=== PATIENT | female | born 1965 | race Caucasian/White ===

== ENCOUNTER 2022-07-02 10:30 | Outpatient (RCR) | payer BC, SELFPAY | END 2022-08-03 15:04 | disposition home or self-care (01) | PROVIDERS: Visit Provider Family Medicine | DX: M51.37 Other intervertebral disc degeneration, lumbosacral region (principal); M79.7 Fibromyalgia; Z51.89 Encounter for other specified aftercare | CPT/HCPCS: 97032; 97110; 97112; 97162 ==

== ENCOUNTER 2024-08-03 17:14 | Emergency (ER) | payer BC, SELFPAY ==
[2024-08-03 17:56] VITALS: BP 141/89; PULSE 80; RESP 18; TEMP 37; O2SAT 99; BMI 35.2
--- NOTE | 2024-08-03 19:37 | ED.NAVMDI ---
HPI - Nausea/Vomiting/Diarrhea General Chief complaint: Nausea/Vomiting Stated complaint: Med reaction--vomiting Time Seen by Provider: 08/03/24 19:31 History of Present Illness HPI Narrative: This patient comes in reporting nausea and vomiting symptoms. She thinks that it may be related to taking would go V for weight loss. She arrives here with normal vital signs. She states that she had not taken will go V for about 5 weeks as she was fighting an upper respiratory infection. She resumed at last evening with a previous dose that was increased from a starting dose. She reports 8 or 9 episodes of vomiting today. Related Data Home Medications ?Medication ?Instructions ?Recorded ?Confirmed albuterol sulfate 90 mcg/actuation 2 puff inhalation Q6H PRN wheezing 08/03/24 08/03/24 aerosol inhaler (Ventolin HFA) atorvastatin 10 mg tablet 10 mg PO QPM 08/03/24 08/03/24 bupropion HCl 150 mg 24 hr tablet, 150 mg PO DAILY 08/03/24 08/03/24 extended release bupropion HCl 300 mg 24 hr tablet, 300 mg PO DAILY 08/03/24 08/03/24 extended release buspirone 15 mg tablet 15 mg PO BID 08/03/24 08/03/24 buspirone 30 mg tablet 30 mg PO BID 08/03/24 08/03/24 cetirizine 10 mg tablet 10 mg PO DAILY 08/03/24 08/03/24 clonazepam 1 mg tablet 0.5 mg PO BID PRN anxiety 08/03/24 08/03/24 clonidine HCl 0.1 mg tablet 0.1 mg PO BID 08/03/24 08/03/24 cyanocobalamin (vitamin B-12) 1 IM 08/03/24 1,000 mcg/mL injection solution cyclobenzaprine 10 mg tablet 10 mg PO 3XD PRN muscle spasm 08/03/24 08/03/24 diclofenac sodium 1 % topical gel 4 g topical QID 08/03/24 08/03/24 duloxetine 60 mg capsule,delayed 60 mg PO BID 08/03/24 08/03/24 release eszopiclone 3 mg tablet 3 mg PO QPM 08/03/24 08/03/24 fluticasone propionate 50 2 spray intranasal DAILY 08/03/24 08/03/24 mcg/actuation nasal spray,suspension gabapentin 300 mg capsule 900 mg PO 3XD 08/03/24 08/03/24 methylphenidate HCl 20 mg tablet 20 mg PO BID 08/03/24 08/03/24 omeprazole 20 mg capsule,delayed 20 mg PO BID 08/03/24 08/03/24 release oxybutynin chloride 5 mg tablet 5 mg PO DAILY 08/03/24 08/03/24 semaglutide (weight loss) 0.25 0.25 mg subcut 08/03/24 mg/0.5 mL subcutaneous pen injector (Wegovy) trazodone 150 mg tablet 150 mg PO QPM 08/03/24 08/03/24 Allergies Allergy/AdvReac Type Severity Reaction Status Date / Time No Known Drug Allergies Allergy Verified 08/03/24 18:03 Review of Systems Status of ROS: Reports: 10 or more systems reviewed and unremarkable except as noted in History and below Narrative: Constitutional: No fevers, no weight gain or loss. Eyes: No discharge. No vision changes. HENT: No congestion, no sore throat, no ear pain. Cardiovascular: No chest pain, no palpitations. Respiratory: No shortness of breath, no wheezes, no cough. Gastrointestinal: No abdominal pain, no diarrhea. She reports some vomiting symptoms. Genitourinary: No dysuria, no hematuria. Musculoskeletal: Normal range of motion. Skin: No rashes, no pruritis. Neurological: No dizziness, weakness, sensory change, speech change. Endo/Heme/Allergies: No bruising or bleeding. No polydipsia. Pysch: no suicidality, no anxiety, no insomnia. All other systems reviewed and are negative. Exam Narrative: Exam Narrative: Constitutional: Well-developed, well-nourished, no acute distress. HEENT: Normocephalic, atraumatic. Neck: Normal range of motion. Nontender. Supple. Heart: Regular. No murmurs. Normal rate. Intact distal pulses. Lungs: Clear to auscultation. No chest discomfort. No wheezes, rhonchi, or rales. Abdomen: Normal bowel sounds. Nontender. No rebound tenderness. Genitalia: Deferred. Back: No midline tenderness. Normal range of motion. Extremities: Normal range of motion. No injury. Skin: Intact. No rash. Warm. No erythema or pallor. Neurologic: No altered sensation. No weakness. Alert and oriented. Psychiatric: No suicidality. No anxiety or depression. No insomnia. Nursing notes and vitals signs are reviewed. Const: Vital Signs, click to edit/add: Vital Signs - 24 hr 08/03/24 17:56 Temperature 98.6 F Pulse Rate [Right Pulse Oximeter] 80 Respiratory Rate 18 Blood Pressure [Ri ght Upper Arm] 141/89 H Pulse Oximetry 99 Oxygen Delivery Me thod Room Air Course Vital Signs Vital signs: Initial Vital Signs Temperature 98.6 F 08/03/24 17:56 Temperature Source Temporal Artery Scan 08/03/24 17:56 Pulse Rate 80 08/03/24 17:56 Pulse Rhythm Regular 08/03/24 17:56 Pulse Strength 3+ Normal 08/03/24 17:56 Respiratory Rate 18 08/03/24 17:56 Blood Pressure 141/89 H 08/03/24 17:56 Blood Pressure Mean 106 H 08/03/24 17:56 Blood Pressure Position Sitting 08/03/24 17:56 Pulse Oximetry 99 08/03/24 17:56 Oxygen Delivery Method Room Air 08/03/24 17:56 Vital Signs Temperature 98.6 F 08/03/24 17:56 Pulse Rate 80 08/03/24 17:56 Respiratory Rate 18 08/03/24 17:56 Blood Pressure 141/89 H 08/03/24 17:56 Pulse Oximetry 99 08/03/24 17:56 Oxygen Delivery Method Room Air 08/03/24 17:56 Temperature 98.6 F 08/03/24 17:56 Pulse Rate 80 08/03/24 17:56 Respiratory Rate 18 08/03/24 17:56 Blood Pressure 141/89 H 08/03/24 17:56 Pulse Oximetry 99 08/03/24 17:56 Oxygen Delivery Method Room Air 08/03/24 17:56 Medications Administered Medications: Discontinued Medications Generic Name Dose Route Start Last Admin Trade Name Freq PRN Reason Stop Dose Admin Ondansetron HCl 4 mg 08/03/24 20:09 08/03/24 20:13 Ondansetron Odt 4 Mg Tab PO 08/03/24 20:10 4 mg ONCE ONE Administration MDM - Nausea/Vomiting/Diarrhea MDM Narrative Medical decision making narrative: This patient arrives reporting vomiting symptoms that likely is related to resuming would go V therapy at an increased dose after being off of it for about 5 weeks. She arrives here with normal vital signs. I did discuss options for going forward and she agreed to take an oral dose of Zofran. She was able to take liquids without vomiting after this medicine helped her out. She did receive a prescription for Zofran from the [facility]. Discharge Plan Discharge Clinical Impression: Vomiting Patient Disposition: Home, Self-Care Condition: Improved Additional Instructions: Take medication as needed and directed. Resume will go V if desired next time at it starting dose. Follow up with MD or return if worsening. Prescriptions: No Action cyclobenzaprine 10 mg tablet 10 mg PO 3XD PRN (Reason: muscle spasm) clonidine HCl 0.1 mg tablet 0.1 mg PO BID cetirizine 10 mg tablet 10 mg PO DAILY atorvastatin 10 mg tablet 10 mg PO QPM methylphenidate HCl 20 mg tablet 20 mg PO BID clonazepam 1 mg tablet 0.5 mg PO BID PRN (Reason: anxiety) cyanocobalamin (vitamin B-12) 1,000 mcg/mL solution 1 IM trazodone 150 mg tablet 150 mg PO QPM buspirone 30 mg tablet 30 mg PO BID gabapentin 300 mg capsule 900 mg PO 3XD omeprazole 20 mg capsule,delayed release(DR/EC) 20 mg PO BID albuterol sulfate [Ventolin HFA] 90 mcg/actuation HFA aerosol inhaler 2 puff INHALATION Q6H PRN (Reason: wheezing) oxybutynin chloride 5 mg tablet 5 mg PO DAILY fluticasone propionate 50 mcg/actuation spray,suspension 2 spray INTRANASAL DAILY buspirone 15 mg tablet 15 mg PO BID bupropion HCl 300 mg tablet extended release 24 hr 300 mg PO DAILY bupropion HCl 150 mg tablet extended release 24 hr 150 mg PO DAILY duloxetine 60 mg capsule,delayed release(DR/EC) 60 mg PO BID eszopiclone 3 mg tablet 3 mg PO QPM diclofenac sodium 1 % gel 4 g topical QID Wegovy 0.25 mg/0.5 mL pen injector 0.25 mg subcut Follow Up/Referrals: Provider,Not a Local [Non-Staff] - Stand Alone Forms: [facility] Info Instructions
[2024-08-03] MEDS: ONDANSETRON ODT 4 MG TAB PO (20:13)
== END 2024-08-03 21:12 | disposition home or self-care (01) ==
PROVIDERS: Emergency Provider Emergency Medicine Emergency Medical Services; PCP Family Medicine
DX: R11.0 Nausea (principal)
CPT/HCPCS: 99283; 99284; A9270

== ENCOUNTER 2025-01-18 10:33 | Emergency (ER) | payer BC, SELFPAY ==
--- OUTSIDE RECORDS SUMMARY | 2020-06-05 04:41 | XMS_ITS | Continuity of Care Document ---
Author Organization [facility] Address [address] [facility] [address] [place] [address] Phone Care Team Providers Care Supervisor Statement Clerks Name Role Phone Tete Lee PA-C Unavailable Unavailable Advance Directives Directive Yes / No Effective Date File Name No Information Encounters Encounter Description Practice Location Reason(s) For Visit Diagnoses Date Provider Providers Copied on Encounter [facility], [address], [place], [place], [id number], [place] tel:[phone] Home Visit No Information Jesus Epstein. [address], [place], [place], [id number], [place]. tel:[phone] Family History Family Member Type Diagnosis Age At Onset No Information Payers Payer name Insurance type Covered alliance party ID Authoriza tion(s) No Information Social History Type Description Quantity Date Captured Comments Alcohol Use Details Unknown Caffeine Use Details Unknown Tobacco Use Status No Information Smoking Status No Information Sex Female Chief Complaint And Reason For Visit No Information Reason For Referral Reason For Referral No Information History Of Present Illness Encounter Date Complaint History Of Prese nt Illness No Information Functional Status Date Functional Assessmen t No Information Instructions Date Instruction Additional Infor mation No Information Assessments Type Assessment Date No Information Patient Care Teams Name Effective Dates (start - stop) Status Members No Information
--- OUTSIDE RECORDS SUMMARY | 2025-01-10 15:00 | XMS_ITS | Encounter Summary ---
Author Organization [facility] Address [address] [place] [address] Care Team Providers Care Pickling Solution Maker Name Role Phone Katelynn Carpenter M.D. Primary Care Provider Reason for Referral * Physical Therapy (Routine) - Authorized Specialty Diagnoses / Procedures Referred By Silvana farrar Referred To Contact Diagnoses Pain Low Back Chronic Katelynn Carpenter M.D. [address] [place] [address] Phone: tel: fax: [facility] [address] [place] [phone] Phone: tel: Referral ID Status Reason Start Date Expiration Date Visits Requested Visits Authorized [id number] Authorized Patient Preference 01/10/2025 07/12/2026 1 1 * Outpatient (Routine) - Authorized Specialty Diagnoses / Procedures Referred By Silvana farrar Referred To Contact Diagnoses Pain Low Back Chronic Katelynn Carpenter M.D. [address] [place] [address] Phone: tel: fax: Referral ID Status Reason Start Date Expiration Date Visits Requested Visits Authorized [id number] Authorized Patient Preference 01/10/2025 07/12/2026 1 1 Reason for Visit * Reason Comments Pain Management Mental Health Problem Encounter Details Date Type Department Care Team (Late st Contact Info) Description 01/10/2025 3:00 PM CDT Office Visit Department of Family Medicine, [facility], in [place], [place] [address] [phone] Katelynn Carpenter M.D. [address], [place] [address] Pain Low Back Chronic (Primary Dx); Smoking Tobacco Use Personal History; Depression Major Recurrent Moderate (HCC); Morbid Obesity Body Mass Index 40.0-44.9 Adult (HCC); Urgency Urinary; Screening Cancer Colon Social History Tobacco Use Types Packs/Day Years Used Date Smoking Tobacco: Every Day Cigarettes 0.8 42.9 Started: 02/18/1982 Passive Smoke Exposure: Never Smokeless Tobacco: Never Tobacco Cessation:Ready to Q uit: Not Asked; Counseling Given: Yes Comments:It seems to help in stressful situations or just to relax. I intend to quit in 6-12 months, or try. Alcohol Use Standard Drinks/Week Comments Yes 0 (1 standard drink = 0.6 oz pure alcohol) [facility] Right Hemisphereities Answer Date Recorded In the past 12 months has [facility] [employer], oil, or water [employer] threatened to shut off services in your home? Yes 11/04/2023 Humiliation, Afraid, Rape, and Kick questionnair e Answer Date Recorded Within the last year, have y ou been afraid of your partner or ex-partner? No 05/26/2022 Within the last year, have y ou been humiliated or emotionally abused in other ways by your partner or ex-partner? No Within the last year, have y ou been kicked, hit, slapped, or otherwise physically hurt by your partner or ex-partner? No 05/26/2022 Within the last year, have y ou been raped or forced to have any kind of sexual activity by your partner or ex-partner? No 05/26/2022 Hunger Vital Sign Answer Date Recorded Within the past 12 months, y ou worried that your food would run out before you got the money to buy more. Often true Within the past 12 months, t he food you bought just didn't last and you didn't have money to get more. Sometimes true PRAPARE - Transportation Answer Date Re corded In the past 12 months, has l ack of transportation kept you from medical appointments or from getting medications? Yes 10/16 In the past 12 months, has l ack of transportation kept you from meetings, work, or from getting things needed for daily living? Yes 11/04/2023 Depression Answer Date Recor ded PHQ-9 Total Score (max 27) 15 01/10 Housing Stability Answer Date Recorded What is your living situation today? I h ave a place to live today, but I am worried about losing it in the future 11/04/2023 Education Answer Date Recorded What is the highest level of school you have completed or the highest degree you have received? Associate degree: occupational, technical, or vocational program 11/21/2018 Comments No Sex and Gender Information Value Date Recorded Sex Assigned at Female 06/20/2021 12:21 PM CORNETIST Legal Sex Female 2:12 PM CORNETIST Gender Identity Female 04/22/2017 9:22 AM CORNETIST Sexual Orientation Straight 04/22/2017 9: 22 AM CORNETIST Occupation Industry Job Start Date Job End Date Homemaker Not on file Not on file Not on file documented as of this encounter Last Filed Vital Signs Vital Sign Reading Time Taken Comments Blood Pressure 104/68 01/10/2025 3:12 PM CDT Pulse 80 01/10/2025 3:12 PM CDT Temperature - - Respiratory Rate - - Oxygen Saturation - - Inhaled Oxygen Concentration - - Weight 93.5 kg (206 lb 2.1 oz) 01/10/2025 3:12 P M CDT Height 155.5 cm (5' 1.22) 01/10/2025 3:12 PM CD T Body Mass Index 38.67 01/10/2025 3:12 PM CDT documented in this encounter Progress Notes * Katelynn Carpenter M.D. - 01/10/2025 3:00 PM CDT SUBJECTIVE CHIEF COMPLAINT / REASON FOR VISIT Marion Rodriguez is a 59 y.o. female who presents for evaluation of Pain Management and Mental Health Problem. HISTORY OF PRESENT ILLNESS Marion Rodriguez states that she has back pain that is sharp and shooting pain down her right leg. She states that the pain is always there. She has been taking 4 325mg tablets 4 times a day. She states that sometimes she gets upper pain that also comes with it. The following portions of the patient's history were reviewed and updated as appropriate: allergies, current medications, family history, medical history, social history, surgical history, and problem list. REVIEW OF SYSTEMS Musculoskeletal: Positive for back pain. Neurological: Positive for numbness or shooting pain in hands, arms, legs, or feet. Psychiatric/Behavioral: Positive for feeling nervous, anxious, or on edge in past two weeks. current medications[1] OBJECTIVE PHYSICAL EXAM Blood pressure 104/68, pulse 80, height 155.5 cm, weight 93.5 kg, last menstrual period 10/30/2018,not currently . Constitutional Appearance: She is obese. HENT Head: Normocephalic and atraumatic. Right Ear: Tympanic membrane, ear canal and external ear normal. Left Ear: Tympanic membrane, ear canal and external ear normal. Nose: Nose normal. Mouth/Throat: Mouth: Mucous membranes are moist. Eyes Conjunctiva/sclera: Conjunctivae normal. Cardiovascular Rate and Rhythm: Normal rate and regular rhythm. Pulses: Normal pulses. Heart sounds: Normal heart sounds. No murmur heard. Pulmonary Effort: Pulmonary effort is normal. Breath sounds: Normal breath sounds. No wheezing or rales. Abdominal General: Abdomen is flat. Bowel sounds are normal. Palpations: Abdomen is soft. Tenderness: There is no abdominal tenderness. There is no right CVA tenderness or left CVA tenderness. Musculoskeletal General: Normal range of motion. Cervical back: Normal range of motion and neck supple. Right lower leg: No edema. Left lower leg: No edema. Skin General: Skin is warm. Neurological General: No focal deficit present. Mental Status: She is alert. Mental status is at baseline. Gait: Gait normal. Psychiatric Mood and Affect: Mood normal. Behavior: Behavior normal. ASSESSMENT / PLAN #1 Pain Low Back Chronic - External referral physician (non-[facility]) - methylPREDNISolone (MedroL DosePak) 4 mg tablet; Take as directed on package., Normal - External referral PT ([facility]) - Discussed with patient that she is taking over the recommended amount of aspirin and that she should take no more than 4000 mg in a day. Also discussed with patient that she is already on to controlled substances , benzos and amphetamines and that adding an additional controlled substance would increase her risk sedation and possible overdose of medication. Discussed with patient a referral to pain medicine to discuss possible injection and we will do a trial dose of steroids to see if it will help decrease her pain. - Patient declined discontinuing her Cymbalta and trying Savella. #2 Smoking Tobacco Use Personal History - nicotine (Nicoderm CQ) 7 mg/24 hr patch; Place 1 patch on the skin daily. Apply 21 mg patch dailyfor 4-6 weeks, then taper by 7-14 mg steps every 2-6 weeks until off. Pharmacy - Place on file, Starting Wed01/10/2025, Normal - nicotine (Nicoderm CQ) 14 mg/24 hr patch; Place 1 patch on the skin daily. Apply 21 mg patch daily for 4-6 weeks, then taper by 7-14 mg steps every 2-6 weeks until off. Pharmacy - Place on file, Starting Wed01/10/2025, Normal - nicotine (Nicoderm CQ) 21 mg/24 hr patch; Place 1 patch on the skin daily. Apply 21 mg patch daily for 4-6 weeks, then taper by 7-14 mg steps every 2-6 weeks until off., Starting Wed01/10/2025, Normal #3 Depression Major Recurrent Moderate (HCC) Assessment & Plan: Followed by psychiatry #4 Morbid Obesity Body Mass Index 40.0-44.9 Adult (HCC) Assessment & Plan: Taking 0.25mg of Wegovy #5 Urgency Urinary - oxyBUTYnin (Ditropan) 5 mg tablet; Take 1 tablet (5 mg total) by mouth daily., Starting Wed01/10/2025, Normal #6 Screening Cancer Colon - Cologuard - Sent Out Lab; Future; Expected date: 01/11/2025 Katelynn Carpenter M.D. [1] Current Outpatient Medications Medication Sig atorvastatin (Lipitor) 10 mg tablet TAKE ONE TABLET BY MOUTH ONE TIME DAILY AT BEDTIME FOR CHOLESTEROL buPROPion XL (Wellbutrin XL) 150 mg 24 hr tablet TAKE ONE TABLET BY MOUTH ONE TIME DAILY WITH 300 MG TAB FOR TOTAL OF 450 MG DAILY* buPROPion XL (Wellbutrin XL) 300 mg 24 hr tablet Take 1 tablet (300 mg total) by mouth daily. busPIRone (BuSpar) 30 mg tablet Take 1 tablet by mouth 2 (two) times a day. cetirizine (ZyrTEC) 10 mg tablet TAKE ONE TABLET BY MOUTH ONE TIME DAILY mckoxsrqs-wpmkbbxiq-htcvrwgpu (Advil Allergy Sinus) 2-30-200 mg tablet clonazePAM (KlonoPIN) 1 mg tablet Take 1 tablet (1 mg total) by mouth daily as needed for anxiety. cloNIDine (Catapres) 0.1 mg tablet TAKE ONE TABLET BY MOUTH TWICE DAILY cyanocobalamin (VITAMIN B12) 1,000 mcg/mL injection Inject 1 mL (1,000 mcg total) intramuscularly every 30 (thirty) days. cyclobenzaprine (FlexeriL) 10 mg tablet TAKE ONE TABLET BY MOUTH THREE TIMES DAILY NEEDED FOR MUSCLE SPASM diclofenac sodium (Voltaren) 1 % gel APPLY 4 GRAMS TOPICALLY 4 TIMES A DAY. APPLY TO LOW BACK &RIGHT LEG DULoxetine (Cymbalta) [address] capsule Take 1 capsule (60 mg total) by mouth 2 (two) times a day. eszopiclone (Lunesta) 3 mg tablet take one tablet by mouth one time daily at bedtime ferrous sulfate 325 mg (65 mg iron) DR tablet Take 1 tablet by mouth daily. fluticasone propionate (Flonase) 50 mcg/actuation nasal spray Inhale 2 Sprays to both nostrils oncedaily. gabapentin (Neurontin) 300 mg capsule TAKE THREE CAPSULES BY MOUTH THREE TIMES DAILY glucosamine-chondroitin (Osteo Bi-Flex) 250-200 mg tablet Take 1 tablet by mouth daily. hydrOXYzine (Atarax) 25 mg tablet Take 25 mg by mouth every 8 (eight) hours as needed. methylphenidate HCl (Ritalin) 20 mg tablet Take 1 tablet (20 mg total) by mouth 2 (two) times a daywith meals. (Patient taking differently: Take 20 mg by mouth 3 (three) times a day.) methylphenidate HCl (Ritalin) 20 mg tablet Take 20 mg by mouth. mv, min #36-iron,carbonyl-FA 16 mg iron- 0.38 mg tablet Take 1 tablet by mouth daily. omeprazole (PriLOSEC) [address] capsule TAKE ONE CAPSULE BY MOUTH TWICE DAILY 1 hour prior to meals or 2 hours after meals oxyBUTYnin (Ditropan) 5 mg tablet take one tablet by mouth one time daily prazosin (Minipress) 1 mg capsule Take 1 Capsule (1 mg) by mouth up to three times daily as needed for anxiety. [START ON 01/31/2025] semaglutide (Wegovy) 0.5 mg/0.5 mL pen injector injection Inject 0.5 mg under the skin every 7 (seven) days for 30 days. simethicone 125 mg tablet Take 125 mg by mouth as needed. Gas X syringe with needle (BD Luer-Ginger Syringe) 3 mL 25 gauge x 1 syringe ONCE, TO USE FOR B12 INJECTIONS traZODone (DESYREL) 150 mg tablet take one tablet by mouth at bedtime Ventolin HFA 90 mcg/actuation inhaler INHALE TWO PUFFS BY MOUTH EVERY SIX HOURS NEEDED FOR WHEEZING ascorbic acid, vitamin C, (VITAMIN C) 1,000 mg tablet (Patient not taking: Reported on 01/10/2025) aspirin 81 mg chewable tablet Chew 1 tablet daily. benzonatate (Tessalon) 200 mg capsule TAKE ONE CAPSULE BY MOUTH THREE TIMES DAILY NEEDED FOR COUGH ergocalciferol, vitamin D2, (VITAMIN D2 ORAL) (Patient not taking: Reported on 01/10/2025) HYDROcodone-acetaminophen (NORCO) 5-325 mg per tablet Take 1 tablet by mouth every 4 (four) hours as needed. HYDROcodone-acetaminophen (NORCO) 7.5-325 mg per tablet Take 1 tablet by mouth every 6 (six) hours as needed for pain Indication: Chronic Pain/Nonacute Pain. multivit with min-folic acid (Multivitamin Gummies) 200 mcg tablet,chewable traMADoL (Ultram) 50 mg tablet Take 50 mg by mouth every 6 (six) hours as needed. Wegovy 0.25 mg/0.5 mL pen injector injection Inject 0.25 mg under the skin every 7 days. (Patient not taking: Reported on 01/10/2025) Wegovy 2.4 mg/0.75 mL pen injector injection Inject 2.4 mg under the skin once weekly. (Patient nottaking: Reported on 01/10/2025) documented in this encounter Miscellaneous Notes * Assessment & Plan Note - Katelynn Carpneter M.D. - 01/10/2025 5:26 PM CDT Associated Problem(s): Depression Major Recurrent Moderate (HCC) Follow ed by psychiatry * Assessment & Plan Note - Katelynn Carpenter M.D. - 01/10/2025 5:26 PM CDT Associated Problem(s): Morbid Obesity Body Mass Index 40.0-44.9 Adult (HCC) Taking 0.25mg of Wegovy documented in this encounter Plan of Treatment Upcoming Encounters Date Type Department Care Team (Late st Contact Info) Description 01/26/2025 1:45 PM CDT Office Visit Department of Orthopedic Surgery in [place], [place] [address] [place] [phone] Akash Mendez M.D. [address] [place] [phone] 01/31/2025 4:00 PM CDT Appointment Department of Radiology in [place] [address] [facility] [place] [address] Katelynn Carpenter M.D. [address] [place] [phone] 03/06/2025 1:40 PM CDT Comprehensive Visit Department of Family Medicine, [facility], in [place], [place] [address] [place] [phone] Katelynn Carpenter M.D. [address], [place] [phone] Scheduled Orders Name Type Priority Associated Diagnoses Orde r Schedule Cologuard - Sent Out Lab Lab Routine Screening Cancer Colon Expected: 01/11/2025 (Approximate), Expires: 04/12/2026 documented as of this encounter Visit Diagnoses Diagnosis Pain Low Back Chronic- Primary Smoking Tobacco Use Personal History Depression Major Recurrent Moderate (HCC) Morbid Obesity Body Mass Index 40.0-44.9 Adult (HCC) Urgency Urinary Screening Cancer Colon documented in this encounter Additional Health Concerns Assessment Noted Time PHQ-9 Depression Total Score: 15 025 8:08 AM CDT documented as of this encounter Care Teams Pickling Solution Maker Relationship Specialty Start Date End Date Katelynn Carpenter M.D. [address] [place] [phone] PCP - General 10/29/23 documented as of this encounter
[2025-01-18 10:51] VITALS: BP 107/70; PULSE 84; RESP 18; TEMP 36.6; O2SAT 98; BMI 40.8
--- NOTE | 2025-01-18 11:10 | XR_ITS ---
Patient: ELIJAH SANDERS Facility:?[facility] Patient ID:?[id number] Site Patient ID:?[id number]. Site :?[id number] Study:?XRay-Extremity Right WRIST 3 VIEWS-01/18/2025 11:25:00 AM Ordering Physician:Stephanie Vicente Final Report: Indication: Fall, pain Technique: Right wrist 3 views. Comparison: None. Findings: No acute fracture or dislocation. Minimal ulnar negative variance. No substantial degenerative changes. The bones appear demineralized. Soft tissues are unremarkable. Impression: : No acute osseous abnormality. Dictated by Adina Rey MD @ 01/18/2025 11:36:17 AM Signed by:?Adina Rey MD @01/18/2025 11:36:17 AM (Electronic Signature)
--- NOTE | 2025-01-18 11:11 | ED.GENADULT ---
HPI - General Adult General Chief complaint: Extremity Pain/Injury, Upper Stated complaint: R arm injury Time Seen by Provider: 01/18/25 11:07 Source: patient Mode of arrival: ambulatory Limitations: no limitations History of Present Illness HPI narrative: 59-year-old female coming in today complaining of right wrist pain. Patient states that she tripped over quadrant fell 3 days ago on an outstretched hand. She also bruised her knees with states that she has no difficulty walking. States that the pain her risk continues. She has been wearing a splint that she had at home. She has a hard time turning her hand over or grabbing things. Pain is located right in the center of the wrist. Related Data Home Medications ?Medication ?Instructions ?Recorded ?Confirmed albuterol sulfate 90 mcg/actuation 2 puff inhalation Q6H PRN wheezing 08/03/24 08/03/24 aerosol inhaler (Ventolin HFA) atorvastatin 10 mg tablet 10 mg PO QPM 08/03/24 08/03/24 bupropion HCl 150 mg 24 hr tablet, 150 mg PO DAILY 08/03/24 08/03/24 extended release bupropion HCl 300 mg 24 hr tablet, 300 mg PO DAILY 08/03/24 08/03/24 extended release buspirone 15 mg tablet 15 mg PO BID 08/03/24 08/03/24 buspirone 30 mg tablet 30 mg PO BID 08/03/24 08/03/24 cetirizine 10 mg tablet 10 mg PO DAILY 08/03/24 08/03/24 clonazepam 1 mg tablet 0.5 mg PO BID PRN anxiety 08/03/24 08/03/24 clonidine HCl 0.1 mg tablet 0.1 mg PO BID 08/03/24 08/03/24 cyanocobalamin (vitamin B-12) 1 IM 08/03/24 1,000 mcg/mL injection solution cyclobenzaprine 10 mg tablet 10 mg PO 3XD PRN muscle spasm 08/03/24 08/03/24 diclofenac sodium 1 % topical gel 4 g topical QID 08/03/24 08/03/24 duloxetine 60 mg capsule,delayed 60 mg PO BID 08/03/24 08/03/24 release eszopiclone 3 mg tablet 3 mg PO QPM 08/03/24 08/03/24 fluticasone propionate 50 2 spray intranasal DAILY 08/03/24 08/03/24 mcg/actuation nasal spray,suspension gabapentin 300 mg capsule 900 mg PO 3XD 08/03/24 08/03/24 methylphenidate HCl 20 mg tablet 20 mg PO BID 08/03/24 08/03/24 omeprazole 20 mg capsule,delayed 20 mg PO BID 08/03/24 08/03/24 release oxybutynin chloride 5 mg tablet 5 mg PO DAILY 08/03/24 08/03/24 semaglutide (weight loss) 0.25 0.25 mg subcut 08/03/24 mg/0.5 mL subcutaneous pen injector ([employer]) trazodone 150 mg tablet 150 mg PO QPM 08/03/24 08/03/24 Allergies Allergy/AdvReac Type Severity Reaction Status Date / Time erythromycin base AdvReac Intermediate vomitting Verified 01/18/25 10:57 Review of Systems Status of ROS: Reports: 6 or more systems reviewed and unremarkable except as noted in History and below Exam Narrative: Exam Narrative: Obese, well-developed patient in no acute distress. Alert and oriented. Answers questions appropriately. Mood and affect are appropriate. HEENT: Normocephalic atraumatic. Extraocular muscles are intact. Conjunctivae are moist without any icterus noted. Extremities: No obvious swelling noted of the right wrist. She has pain with supination. Hand business ethics professor is weak on that side secondary to pain. Normal radial pulse and capillary refill. No pain over the medial or lateral aspect of the wrist. Const: Vital Signs, click to edit/add: Vital Signs - 24 hr 01/18/25 10:51 Temperature 97.9 F Pulse Rate [Pulse Oximeter] 84 Respiratory Rate 18 Blood Pressure [Le ft Upper Arm] 107/70 Pulse Oximetry 98 Oxygen Delivery Me thod Room Air Course Course ED Course: X-ray of the wrist was obtained. X-ray was unremarkable. Discussed this with the patient patient is quite concerned that she is really in unbearable pain. We discussed symptomatic treatment for a few days versus doing a CT scan and patient wishes to proceed with a CT scan at this time as she thinks that the pain is ?too sharp for there not to be a broken bone. Proceeded with a CT of the wrist: No fractures however there is a slight prominent scapholunate interval -concerning for potential ligamentous injury. Patient placed in a cock-up splint and will follow up with Orthopedics. Vital Signs Vital signs: Initial Vital Signs Temperature 97.9 F 01/18/25 10:51 Temperature Source Temporal Artery Scan 01/18/25 10:51 Pulse Rate 84 01/18/25 10:51 Respiratory Rate 18 01/18/25 10:51 Blood Pressure 107/70 01/18/25 10:51 Blood Pressure Mean 82 01/18/25 10:51 Blood Pressure Position Sitting 01/18/25 10:51 Pulse Oximetry 98 01/18/25 10:51 Oxygen Delivery Method Room Air 01/18/25 10:51 Vital Signs Temperature 97.9 F 01/18/25 10:51 Pulse Rate 84 01/18/25 10:51 Respiratory Rate 18 01/18/25 10:51 Blood Pressure 107/70 01/18/25 10:51 Pulse Oximetry 98 01/18/25 10:51 Oxygen Delivery Method Room Air 01/18/25 10:51 Temperature 97.9 F 01/18/25 10:51 Pulse Rate 84 01/18/25 10:51 Respiratory Rate 18 01/18/25 10:51 Blood Pressure 107/70 01/18/25 10:51 Pulse Oximetry 98 01/18/25 10:51 Oxygen Delivery Method Room Air 01/18/25 10:51 Medical Decision Making MDM Narrative Medical decision making narrative: 59-year-old female with a wrist injury. Plan per above. Imaging Data X-ray wrist: Attestation: I have reviewed the pertinent imaging results. Radiologist's impression: Indication: Fall, pain Technique: Right wrist 3 views. Comparison: None. Findings: No acute fracture or dislocation. Minimal ulnar negative variance. No substantial degenerative changes. The bones appear demineralized. Soft tissues are unremarkable. Impression: : No acute osseous abnormality. CT wrist: Attestation: I have reviewed the pertinent imaging results. Radiologist's impression: TECHNIQUE: Noncontrast CT of the right wrist. COMPARISON: Radiographs from 01/18/2025. FINDINGS: No acute fracture. There is ulnar minus variance. Slightly prominent scapholunate interval. No significant joint space narrowing. No erosive change or chondrocalcinosis. IMPRESSION: 1. No acute fracture. 2. Ulnar minus variance. 3. Slightly prominent scapholunate interval. Discharge Plan Discharge Clinical Impression: Injury of wrist Patient Disposition: Home, Self-Care Condition: Stable Additional Instructions: Wear splint at all times. Follow up with Orthopedics for next steps in management. Prescriptions: No Action cyclobenzaprine 10 mg tablet 10 mg PO 3XD PRN (Reason: muscle spasm) clonidine HCl 0.1 mg tablet 0.1 mg PO BID cetirizine 10 mg tablet 10 mg PO DAILY atorvastatin 10 mg tablet 10 mg PO QPM methylphenidate HCl 20 mg tablet 20 mg PO BID clonazepam 1 mg tablet 0.5 mg PO BID PRN (Reason: anxiety) cyanocobalamin (vitamin B-12) 1,000 mcg/mL solution 1 IM trazodone 150 mg tablet 150 mg PO QPM buspirone 30 mg tablet 30 mg PO BID gabapentin 300 mg capsule 900 mg PO 3XD omeprazole 20 mg capsule,delayed release(DR/EC) 20 mg PO BID albuterol sulfate [Ventolin HFA] 90 mcg/actuation HFA aerosol inhaler 2 puff INHALATION Q6H PRN (Reason: wheezing) oxybutynin chloride 5 mg tablet 5 mg PO DAILY fluticasone propionate 50 mcg/actuation spray,suspension 2 spray INTRANASAL DAILY buspirone 15 mg tablet 15 mg PO BID bupropion HCl 300 mg tablet extended release 24 hr 300 mg PO DAILY bupropion HCl 150 mg tablet extended release 24 hr 150 mg PO DAILY duloxetine 60 mg capsule,delayed release(DR/EC) 60 mg PO BID eszopiclone 3 mg tablet 3 mg PO QPM diclofenac sodium 1 % gel 4 g topical QID Wegovy 0.25 mg/0.5 mL pen injector 0.25 mg subcut Follow Up/Referrals: William Wilkisn MD [Primary Care Provider, Family Practice] Stand Alone Forms: [employer] Info Instructions
--- OUTSIDE RECORDS SUMMARY | 2025-01-18 11:19 | XMS_ITS | Encounter Summary ---
Author Organization [facility] Address [address] [place] [address] Care Team Providers Care Dining Manager Name Role Phone Katelynn Carpenter M.D. Primary Care Provider Encounter Details Date Type Department Care Team (Late st Contact Info) Description 12/14/2024 Clinical Communication Department of Family Medicine, [facility], in [place], [place] [address] [phone] Katelynn Carpenter M.D. [address] [phone] Social History Tobacco Use Types Packs/Day Years Used Date Smoking Tobacco: Every Day Cigarettes 0.8 42.9 Started: 02/18/1982 Passive Smoke Exposure: Never Smokeless Tobacco: Never Comments:It seems to help in stressful situations or just to relax. I intend to quit in 6-12 months, or try. Alcohol Use Standard Drinks/Week Comments Yes 0 (1 standard drink = 0.6 oz pure alcohol) Glass of wine with dinner/ w ? [facility] Utilities Answer Date Recorded In the past 12 months has e electric, gas, oil, or water company threatened to shut off services in your [...] Sex Assigned at Female 06/20/2021 12:21 PM MANUFACTURING PLANT MANAGER Legal Sex Female 2:12 PM MANUFACTURING PLANT MANAGER Gender Identity Female 04/22/2017 9:22 AM MANUFACTURING PLANT MANAGER Sexual Orientation Straight 04/22/2017 9: 22 AM MANUFACTURING PLANT MANAGER Occupation Industry Job Start Date Job End Date Homemaker Not on file Not on file Not on file documented as of this encounter Plan of Treatment Upcoming Encounters Date Type Department Care Team (Late st Contact Info) Description 01/26/2025 1:45 PM CDT Office Visit Department of Orthopedic Surgery in [place], [place] [address] [phone] Aksah Mendez M.D. [address] [phone] 01/31/2025 4:00 PM CDT Appointment Department of Radiology in [place] [address] [place] [address] Katelynn Carpenter M.D. [address] [phone] 03/06/2025 1:40 PM CDT Comprehensive Visit Department of Family Medicine, [facility], in [place], [place] [address] [phone] Katelynn Carpenter M.D. [address] [phone] documented as of this encounter Visit Diagnoses Not on filedocumented in this encounter Additional Health Concerns Assessment Noted Time PHQ-9 Depression Total Score: 15 024 10:51 AM MANUFACTURING PLANT MANAGER documented as of this encounter Care Teams Dining Manager Relationship Specialty Start Date End Date Katelynn Carpenter M.D. [address] [phone] PCP - General 10/29/23 documented as of this encounter
--- OUTSIDE RECORDS SUMMARY | 2025-01-18 11:19 | XMS_ITS | Encounter Summary ---
Author Organization [facility] Address [address] [place] [address] Care Team Providers Care Clothing Sales Assistant Name Role Phone Katelynn Carpenter M.D. Primary Care Provider Reason for Visit * Reason Comments Med Refill Encounter Details Date Type Department Care Team (Late st Contact Info) Description 12/09/2024 Refill Department of Family Medicine, [facility], in [place], [place] [address] [place] [phone] Katelynn Carpenter M.D. [address] [place] [phone] Med Refill Social History Tobacco Use Types Packs/Day Years [...] alcohol) Glass of wine with dinner/ w hubby [facility] Utilities Answer Date Recorded In the past 12 months has [employer] electric, gas, oil, or water company threatened [...] Sex Assigned at Female 06/20/2021 12:21 PM GRADER OPERATOR Legal Sex Female 2:12 PM GRADER OPERATOR Gender Identity Female 04/22/2017 9:22 AM GRADER OPERATOR Sexual Orientation Straight 04/22/2017 9: 22 AM GRADER OPERATOR Occupation Industry Job Start Date Job End Date Homemaker Not on file Not on file Not on file documented as of this encounter Plan of Treatment Upcoming Encounters Date Type Department Care Team (Late st Contact Info) Description 01/26/2025 1:45 PM CDT Office Visit Department of Orthopedic Surgery in [place], [place] [address] [place] [address] Akash Mendez M.D. [address] [phone] 01/31/2025 4:00 PM CDT Appointment Department of Radiology in [place] [address] [place] [address] Katelynn Carpenter M.D. [address] [phone] 03/06/2025 1:40 PM CDT Comprehensive Visit Department of Family Medicine, [facility], in [place], [place] [address] [phone] Katelynn Carpenter M.D. [address] [phone] documented as of this encounter Visit Diagnoses Diagnosis Morbid Obesity Body Mass Index 40.0-44.9 Adult (HCC) documented in this encounter Additional Health Concerns Assessment Noted Time PHQ-9 Depression Total Score: 15 024 10:51 AM GRADER OPERATOR documented as of this encounter Care Teams Clothing Sales Assistant Relationship Specialty Start Date End Date Katelynn Carpenter M.D. [address] [phone] PCP - General 10/29/23 documented as of this encounter
--- OUTSIDE RECORDS SUMMARY | 2025-01-18 11:19 | XMS_ITS | Encounter Summary ---
Author Organization [facility] Address [address] [place] [address] Care Team Providers Care Hypoid Gear Generator Name Role Phone Katelynn Carpenter M.D. Primary Care Provider Reason for Referral * Outpatient (Routine) - Authorized Specialty Diagnoses / Procedures Referred By Contact Referred To Contact Physical Medicine and Rehabilitation Diagnoses Pain Low Back Chronic James Colby M.D. [address] [place] [address] Phone: tel: fax: [facility] Referral ID Status Reason Start Date Expiration Date V isits Requested Visits Authorized [id number] Authorized 11/16/2024 05/18/2026 1 1 Encounter Details Date Type Department Care Team (Late st Contact Info) Description 11/16/2024 Clinical Communication Department of Family Medicine, [facility], in [place], [place] [address] [place] [phone] Katelynn Carpenter M.D. [address] [place] [phone] Social History Tobacco Use Types Packs/Day Years [...] alcohol) [facility] with dinner/ [facility] Utilities Answer Date Recorded In the past [address] [facility] [employer], gas, oil, or water [employer] threatened to shut off services in your [...] ded PHQ-9 Total Score (max 27) 15 04/18 Housing Stability Answer Date Recorded What is [...] Sex Assigned at Female 06/20/2021 12:21 PM MID LEVEL DEVELOPER Legal Sex Female 2:12 PM MID LEVEL DEVELOPER Gender Identity Female 04/22/2017 9:22 AM MID LEVEL DEVELOPER Sexual Orientation Straight 04/22/2017 9: 22 AM MID LEVEL DEVELOPER Occupation Industry Job Start Date Job End Date Homemaker Not on file Not on file Not on file documented as of this encounter Plan of Treatment Upcoming Encounters Date Type Department Care Team (Late st Contact Info) Description 01/26/2025 1:45 PM CDT Office Visit Department of Orthopedic Surgery in [place], [place] [address] [phone] Akash Mendez M.D. [address] [phone] 01/31/2025 4:00 PM CDT Appointment Department of Radiology in [address] [phone] Katelynn Carpenter M.D. [address] [phone] 03/06/2025 1:40 PM CDT Comprehensive Visit Department of Family Medicine, [facility], in [place], [place] [address] [phone] Katelynn Carpenter M.D. [address] [phone] Scheduled Referrals Name Type Priority Associated Diagnoses Order Schedule Physical Medicine and Rehabilitation - General consult (clinic) Outpatient Referral Routine Pain Low Back Chronic Expected: 11/16/2024, Expires: 02/16/2026 documented as of this encounter Visit Diagnoses Diagnosis Pain Low Back Chronic- Primary documented in this encounter Additional Health Concerns Assessment Noted Time PHQ-9 Depression Total Score: 15 12/03/2 024 10:51 AM MID LEVEL DEVELOPER documented as of this encounter Care Teams Hypoid Gear Generator Relationship Specialty Start Date End Date Katelynn Carpenter M.D. [address] [place] [phone] PCP - General 10/29/23 documented as of this encounter
--- OUTSIDE RECORDS SUMMARY | 2025-01-18 11:19 | XMS_ITS | Encounter Summary ---
Author Organization [facility] [place] [facility] Address [address] [place] [address] Care Team Providers Care Segment Assembler Name Role Phone Katelynn Carpenter M.D. Primary Care Provider Reason for Visit * Reason Onset Date Comments Rx PA Approval 11/27/2024 Wegovy 0.25 mg/0 .5 ml soln Encounter Details Date Type Department Care Team (Latest Contact Info) Description 11/27/2024 Clinical Communication Pharmacy Prior Auth RO [id number] Mae Squires Rx PA Approval (Wegovy 0.25 mg/0.5 ml soln) Social History Tobacco Use Types Packs/Day Years [...] alcohol) [facility]/ [facility] Utilities Answer Date Recorded In the past 12 months has e [employer], gas, oil, or water [employer] threatened to shut off services in your [...] Sex Assigned at Female 06/20/2021 12:21 PM SALVAGE WORKER Legal Sex Female 2:12 PM SALVAGE WORKER Gender Identity Female 04/22/2017 9:22 AM SALVAGE WORKER Sexual Orientation Straight 04/22/2017 9: 22 AM SALVAGE WORKER Occupation Industry Job Start Date Job End Date Homemaker Not on file Not on file Not on file documented as of this encounter Miscellaneous Notes * Telephone Encounter - Rafal Squiresceasar Mccarthy - 11/27/2024 11:11 AM CDT Pharmaceutical prior authorization has been approved for Wegovy 0.25 mg/0.5 ml. If you have any follow-up questions, please send an [employer] message to P [facility] MK. documented in this encounter Plan of Treatment Upcoming Encounters Date Type Department Care Team (Late st Contact Info) Description 01/26/2025 1:45 PM CDT Office Visit Department of Orthopedic Surgery in [place], [place] [address] [phone] Akash Mendez M.D. [address] [phone] 01/31/2025 4:00 PM CDT Appointment Department of Radiology in [place] [address] [place] [phone] Katelynn Carpenter M.D. [address] [phone] 03/06/2025 1:40 PM CDT Comprehensive Visit Department of Family Medicine, [facility], in [place], [place] [address] [phone] Katelynn Carpenter M.D. [address] [phone] documented as of this encounter Visit Diagnoses Not on filedocumented in this encounter Additional Health Concerns Assessment Noted Time PHQ-9 Depression Total Score: 15 024 10:51 AM SALVAGE WORKER documented as of this encounter Care Teams Segment Assembler Relationship Specialty Start Date End Date Katelynn Carpenter M.D. [address] [phone] PCP - General 10/29/23 documented as of this encounter
--- OUTSIDE RECORDS SUMMARY | 2025-01-18 11:19 | XMS_ITS | Encounter Summary ---
Author Organization [facility] Address [address] [place] [address] Care Team Providers Care Line Assembler Aircraft Name Role Phone Katelynn Carpenter M.D. Primary Care Provider Reason for Visit * Reason Comments Med Refill Encounter Details Date Type Department Care Team (Late st Contact Info) Description 11/26/2024 Refill Department of Family Medicine, [facility], in [place], [place] [address] [phone] Saige Flynn, EYAL, C.N.P. [address] [place] [phone] Med Refill Social History Tobacco Use [...] Glass of wine with dinner/ w hubby [facility] Utilities Answer Date Recorded In the past 12 months has health system electric, gas, oil, or water company threatened [...] Sex Assigned at Female 06/20/2021 12:21 PM RAIL CAR REPAIRMAN Legal Sex Female 2:12 PM RAIL CAR REPAIRMAN Gender Identity Female 04/22/2017 9:22 AM RAIL CAR REPAIRMAN Sexual Orientation Straight 04/22/2017 9: 22 AM RAIL CAR REPAIRMAN Occupation Industry Job Start Date Job End Date Homemaker Not on file Not on file Not on file documented as of this encounter Plan of Treatment Upcoming Encounters Date Type Department Care Team (Late st Contact Info) Description 01/26/2025 1:45 PM CDT Office Visit Department of Orthopedic Surgery in [place], [place] [address] [place] [address] Akash Mendez M.D. [address] [phone] 01/31/2025 4:00 PM CDT Appointment Department of Radiology in [place], [place] [address] [place] [address] Katelynn Carpenter M.D. [address] [phone] 03/06/2025 1:40 PM CDT Comprehensive Visit Department of Family Medicine, [facility], in [place], [place] [address] [phone] Katelynn Carpenter M.D. [address] [phone] documented as of this encounter Visit Diagnoses Not on filedocumented in this encounter Additional Health Concerns Assessment Noted Time PHQ-9 Depression Total Score: 15 024 10:51 AM RAIL CAR REPAIRMAN documented as of this encounter Care Teams Line Assembler Aircraft Relationship Specialty Start Date End Date Katelynn Carpenter M.D. [address] [phone] PCP - General 10/29/23 documented as of this encounter
--- OUTSIDE RECORDS SUMMARY | 2025-01-18 11:19 | XMS_ITS | Encounter Summary ---
Author Organization [facility] Address [address] [place] [address] Care Team Providers Care Steam Pressure Chamber Operator Name Role Phone Katelynn Carpenter M.D. Primary Care Provider Reason for Referral * Medication Prior Authorization - Closed Specialty Diagnoses / Procedures Referred By Silvana t Referred To Contact Diagnoses Morbid Obesity Body Mass Index 40.0-44.9 Adult (HCC) Katelynn Carpenter M.D. [address] [place] [address] Phone: tel: fax: Referral ID Status Reason Start Date Expiration Date Visits Re quested Visits Authorized [id number] Closed 1 1 Reason for Visit * Reason Comments Med Refill Encounter Details Date Type Department Care Team (Late st Contact Info) Description 12/26/2024 Refill Department of Family Medicine, [facility], in [place], [place] [address] [place] [address] Katelynn Carpenter M.D. [address] [place] [address] Med Refill Social History Tobacco Use [...] alcohol) Glass of wine with dinner/ w [facility] Utilities Answer Date Recorded In the past 12 months has e [employer], [employer], oil, or water [employer] threatened to shut off services in your [...] Sex Assigned at Female 06/20/2021 12:21 PM DAIRY PROCESSING EQUIPMENT OPERATOR Legal Sex Female 2:12 PM DAIRY PROCESSING EQUIPMENT OPERATOR Gender Identity Female 04/22/2017 9:22 AM DAIRY PROCESSING EQUIPMENT OPERATOR Sexual Orientation Straight 04/22/2017 9: 22 AM DAIRY PROCESSING EQUIPMENT OPERATOR Occupation Industry Job Start Date Job End Date Homemaker Not on file Not on file Not on file documented as of this encounter Plan of Treatment Upcoming Encounters Date Type Department Care Team (Late st Contact Info) Description 01/26/2025 1:45 PM CDT Office Visit Department of Orthopedic Surgery in [place], [place] [address] [address] Akash Mendez M.D. [address] [address] 01/31/2025 4:00 PM CDT Appointment Department of Radiology in [place] [address] [place] [id number] Katelynn Crapenter M.D. [address] [address] 03/06/2025 1:40 PM CDT Comprehensive Visit Department of Family Medicine, [facility], in [place], [place] [address] [address] Katelynn Carpenter M.D. [address] [address] documented as of this encounter Visit Diagnoses Diagnosis Fibromyalgia Morbid Obesity Body Mass Index 40.0-44.9 Adult (HCC) documented in this encounter Additional Health Concerns Assessment Noted Time PHQ-9 Depression Total Score: 15 024 10:51 AM DAIRY PROCESSING EQUIPMENT OPERATOR documented as of this encounter Care Teams Steam Pressure Chamber Operator Relationship Specialty Start Date End Date Katelynn Carpenter M.D. [address], [place] [phone] PCP - General 10/29/23 documented as of this encounter
--- OUTSIDE RECORDS SUMMARY | 2025-01-18 11:19 | XMS_ITS | Clinical Summary ---
Author Organization [facility] Address [address] [place] [address] Care Team Providers Care Certified Surgical Technician Name Role Phone Katelynn Carpenter M.D. Primary Care Provider Source Comments Patient records contain information from all sites at [facility]. For routine questions regarding patient records, call [phone] during business hours, M-F 8:00 AM - 5:00 PM Central Time. Record requests for emergency care only can be directed to [phone] at any time.[facility] Allergies Active Allergy Reactions Criticality Noted Date Comments Erythromycin GI intolerance,Nause a And Vomiting 02/26/2003 PN: LW Reaction: Vomiting Nabumetone GI intolerance 10/31/2007 Heartburn Topiramate GI intolerance High 01/28/2022 Medications * This document contains information received from the source organization and may not represent a complete record from that organization. aspirin 81 mg chewable tablet Chew 1 tablet daily. 017 Active ferrous sulfate 325 mg (65 mg iron) DR tablet Take 1 tablet by mouth daily. 017 Active simethicone 125 mg tablet Take 125 mg by mouth as needed. Gas X 014 Active chlorphen-pseu doeph-ibuprofe n (Advil Allergy Sinus) 2-30-200 mg tablet Active ascorbic acid, vitamin C, (VITAMIN C) 1,000 mg tablet 08/01/2 022 Active omeprazole (PriLOSEC) [address] capsuleIndicat ions:Gastroeso phageal Reflux Disease Without Esophagitis TAKE ONE CAPSULE BY MOUTH TWICE DAILY 1 hour prior to meals or 2 hours after meals 180 capsule 3 023 Active cyanocobalamin (VITAMIN B12) 1,000 mcg/mL injectionIndic ations:Anemia B12 Deficiency Inject 1 mL (1,000 mcg total) intramuscularly every 30 (thirty) days. 3 mL 4 023 Active traZODone (DESYREL) 150 mg tabletIndicati ons:Anxiety take one tablet by mouth at bedtime 90 tablet 1 023 Active methylphenidat e HCl (Ritalin) 20 mg tabletIndicati ons:Attention Deficit Disorder Inattentive Take 1 tablet (20 mg total) by mouth 2 (two) times a day with meals. 60 tablet Active Additional Information Patient taking differently:20 mg oral3 times daily, Reported on 01/10/2025 buPROPion XL (Wellbutrin XL) 300 mg 24 hr tabletIndicati ons:Depression Major Recurrent Moderate (HCC) Take 1 tablet (300 mg total) by mouth daily. 90 tablet 3 Active syringe with needle (BD Luer-Ginger Syringe) 3 mL 25 gauge x 1 syringeIndicat ions:Anemia B12 Deficiency ONCE, TO USE FOR B12 INJECTIONS 4 each 3 024 Active DULoxetine (Cymbalta) [address] capsuleIndicat ions:Depressio n Major Recurrent Moderate (HCC),Fibromya lgia Take 1 capsule (60 mg total) by mouth 2 (two) times a day. 180 capsule 3 024 Active clonazePAM (KlonoPIN) 1 mg tabletIndicati ons:Anxiety Take 1 tablet (1 mg total) by mouth daily as needed for anxiety. 30 tablet 024 Active eszopiclone (Lunesta) 3 mg tabletIndicati ons:Insomnia take one tablet by mouth one time daily at bedtime 30 tablet 024 Active glucosamine-ch ondroitin (Osteo Bi-Flex) 250-200 mg tablet Take 1 tablet by mouth daily. 90 tablet 3 024 2024 Active mv, min #36-iron,carbo nyl-FA 16 mg iron- 0.38 mg tablet Take 1 tablet by mouth daily. 90 tablet 3 024 2024 Active gabapentin (Neurontin) 300 mg capsule TAKE THREE CAPSULES BY MOUTH THREE TIMES DAILY 270 capsule 11 025 Active Wegovy 2.4 mg/0.75 mL pen injector injectionIndic ations:Morbid Obesity Body Mass Index 40.0-44.9 Adult (HCC) Inject 2.4 mg under the skin once weekly. 3 mL 3 025 Active Additional Information Patient not taking.Reported on 01/10/2025 Ventolin HFA 90 mcg/actuation inhalerIndicat ions:Shortness Of Breath INHALE TWO PUFFS BY MOUTH EVERY SIX HOURS NEEDED FOR WHEEZING 54 g 3 025 Active cetirizine (ZyrTEC) 10 mg tablet TAKE ONE TABLET BY MOUTH ONE TIME DAILY 90 tablet 3 025 Active prazosin (Minipress) 1 mg capsule Take 1 Capsule (1 mg) by mouth up to three times daily as needed for anxiety. 025 Active hydrOXYzine (Atarax) 25 mg tablet Take 25 mg by mouth every 8 (eight) hours as needed. 025 Active cloNIDine (Catapres) 0.1 mg tabletIndicati ons:Persistent Depressive Disorder TAKE ONE TABLET BY MOUTH TWICE DAILY 180 tablet 025 Active atorvastatin (Lipitor) 10 mg tabletIndicati ons:Hyperlipid emia On Treatment TAKE ONE TABLET BY MOUTH ONE TIME DAILY AT BEDTIME FOR CHOLESTEROL 90 tablet 025 Active diclofenac sodium (Voltaren) 1 % gel APPLY 4 GRAMS TOPICALLY 4 TIMES A DAY. APPLY TO LOW BACK & RIGHT LEG 100 g 3 025 Active cyclobenzaprin e (FlexeriL) 10 mg tabletIndicati ons:Fibromyalg ia TAKE ONE TABLET BY MOUTH THREE TIMES DAILY NEEDED FOR MUSCLE SPASM 90 tablet 025 Active fluticasone propionate (Flonase) 50 mcg/actuation nasal spray Inhale 2 Sprays to both nostrils once daily. 48 g 3 025 Active Wegovy 0.25 mg/0.5 mL pen injector injectionIndic ations:Morbid Obesity Body Mass Index 40.0-44.9 Adult (HCC) Inject 0.25 mg under the skin every 7 days. 2 mL Active semaglutide (Wegovy) 0.5 mg/0.5 mL pen injector injection Inject 0.5 mg under the skin every 7 (seven) days for 30 days. 2 mL 025 2024 Active buPROPion XL (Wellbutrin XL) 150 mg 24 hr tablet TAKE ONE TABLET BY MOUTH ONE TIME DAILY WITH 300 MG TAB FOR TOTAL OF 450 MG DAILY* Active busPIRone (BuSpar) 30 mg tablet Take 1 tablet by mouth 2 (two) times a day. Active methylPREDNISo lone (MedroL DosePak) 4 mg tabletIndicati ons:Pain Low Back Chronic Take as directed on package. 21 tablet Active nicotine (Nicoderm CQ) 7 mg/[address] 1 patch on the skin daily. Apply 21 mg patch daily for 4-6 weeks, then taper by 7-14 mg steps every 2-6 weeks until off. Pharmacy - Place on file 14 patch 5 Active nicotine (Nicoderm CQ) 14 mg/[address] 1 patch on the skin daily. Apply 21 mg patch daily for 4-6 weeks, then taper by 7-14 mg steps every 2-6 weeks until off. Pharmacy - Place on file 14 patch 5 Active nicotine (Nicoderm CQ) 21 mg/[address] 1 patch on the skin daily. Apply 21 mg patch daily for 4-6 weeks, then taper by 7-14 mg steps every 2-6 weeks until off. 14 patch 5 Active oxyBUTYnin (Ditropan) 5 mg tabletIndicati ons:Urgency Urinary Take 1 tablet (5 mg total) by mouth daily. 90 tablet 3 Active ergocalciferol , vitamin D2, (VITAMIN D2 ORAL) 022 2024 Discontinued(T herapy completed) multivit with min-folic acid (Multivitamin Gummies) 200 mcg tablet,chewabl e 022 2024 Discontinued(T herapy completed) HYDROcodone-ac etaminophen (NORCO) 7.5-325 mg per tabletIndicati ons:Chronic Pain/Nonacute Pain Take 1 tablet by mouth every 6 (six) hours as needed for pain Indication: Chronic Pain/Nonacute Pain. 30 tablet 023 2024 Discontinued(T herapy completed) busPIRone (BUSPAR) 15 mg tablet Take by mouth. 024 2024 Discontinued HYDROcodone-ac etaminophen (NORCO) 5-325 mg per tablet Take 1 tablet by mouth every 4 (four) hours as needed. 024 2024 Discontinued(T herapy completed) oxyBUTYnin (Ditropan) 5 mg tabletIndicati ons:Urgency Urinary take one tablet by mouth one time daily 90 tablet 3 024 2024 Discontinued(R eorder) traMADoL (Ultram) 50 mg tablet Take 50 mg by mouth every 6 (six) hours as needed. 024 2024 Discontinued(T herapy completed) fluticasone propionate (Flonase) 50 mcg/actuation nasal spray Inhale 2 Sprays to both nostrils once daily. 48 g 025 2024 Discontinued Wegovy 0.25 mg/0.5 mL pen injector injectionIndic ations:Morbid Obesity Body Mass Index 40.0-44.9 Adult (HCC) Inject 0.25 mg under the skin every 7 days. 2 mL 025 2024 Discontinued benzonatate (Tessalon) 200 mg capsuleIndicat ions:Cough Subacute TAKE ONE CAPSULE BY MOUTH THREE TIMES DAILY NEEDED FOR COUGH 30 capsule 025 2024 Discontinued(T herapy completed) cyclobenzaprin e (FlexeriL) 10 mg tabletIndicati ons:Fibromyalg ia TAKE ONE TABLET BY MOUTH THREE TIMES DAILY NEEDED FOR MUSCLE SPASM 90 tablet 025 2024 Discontinued semaglutide (Wegovy) 0.25 mg/0.5 mL pen injector injectionIndic ations:Morbid Obesity Body Mass Index 40.0-44.9 Adult (HCC) Inject 0.25 mg under the skin every 7 (seven) days for 60 days. 2 mL 1 025 2024 Discontinued methylphenidat e HCl (Ritalin) 20 mg tablet Take 20 mg by mouth. 025 2024 Discontinued Active Problems Problem Noted Date Diagnosed Date Morbid Obesity Body Mass Index 40.0-44.9 Adult 0 11/12/2022 Assessment & Plan (01/10/2025 5:26 PM CDT): Taking 0.25mg of Wegovy Abuse Tobacco Smoking 11/12/2022 Posttraumatic Stress Disorder Prolonged 08/04/19 23 Pain Low Back Chronic 08/03/2022 Depression Major Recurrent Moderate 01/20/2022 Assessment & Plan (01/10/2025 5:26 PM CDT): Follow ed by psychiatry Attention Deficit Disorder Inattentive 8 Hyperlipidemia Mixed 07/22/2012 Gastroesophageal Reflux Disease NOS 07/22/2012 Fibromyalgia 10/27/2010 Degeneration Disc Lumbosacral 02/27/2008 Overview (03/24/2017): Overview: MRI 2010: Mild to moderate degenerative facet disease between L3 and S1 with mild degenerative disc disease. There is mild left foraminal narrowing at L5-S1. Small posterior disc protrusion at L5-S1 is decreased in size. No significant central canal stenosis in the lumbar spine. Last Assessment & Plan: Chronic narcotic use - vicodin no more then QID #120 monthly with goal to wean. Resolved Problems Problem Noted Date Diagnosed Date Resolved Date Antalgic Gait Ortho 06/16/2023 01/11/20 25 Persistent Depressive Disorder 02/01/2015 08/09/2023 Overview (10/06/2016): Disorder Depressive Persistent (Formerly Dysthymia) NOS Morbid Obesity Body Mass Ind ex 40.0-44.9 Adult 07/22/2012 11/12/2022 Overview (10/12/2018): Overview: LW Modifier: s/p gastric bypass surg in 11/17 LW Onset: [id number] Encounters Date Type Department Care Team Description 01/11/2025 Orders Only Department of Family Medicine, [facility], in [place], [place] [address] [place] [phone] Katelynn Carpenter M.D. Screening Cancer Colon 01/10/2025 3:00 PM CDT Office Visit Department of Family [facility], [facility], in [place], [place] [address] [place] [phone] Katelynn Carpenter M.D. Pain Low Back Chronic (Primary Dx); Smoking Tobacco Use Personal History; Depression Major Recurrent Moderate (HCC); Morbid Obesity Body Mass Index 40.0-44.9 Adult (HCC); Urgency Urinary; Screening Cancer Colon 12/26/2024 Refill Department of Family [facility], [facility], in [place], [place] [address] [place] [phone] Saige Flynn APRN, C.N.P. Med Refill 12/26/2024 Refill Department of Family Medicine, [facility], [place], [place] [address] [place] [address], [place] [address] Katelynn Carpenter M.D. Med Refill 12/17/2024 Refill Department of Family [facility], [facility], in [place], [place] [address] [place] [address], [place] [address] Katelynn Carpenter M.D. Med Refill 12/14/2024 Clinical Communication Department of Family Medicine, [facility], in [place], [place] [address] [place] [phone] James Colby M.D. Order Request 12/14/2024 Clinical Communication Department of Family [facility], [facility], in [place], [place] [address] [place] [address] Katelynn Carpenter M.D. 12/09/2024 Refill Department of Family Medicine, [facility], in [address] [place] [address] Katelynn Carpenter M.D. Med Refill 11/29/2024 Orders Only Department of Orthopedic Surgery in [address] [place] [address] Akash Mendez M.D. Epicondylitis Lateral Right (Primary Dx) 11/27/2024 Clinical Communication Pharmacy Prior Auth RO [phone] Mae Squires Rx PA Approval (Wegovy 0.25 mg/0.5 ml soln) 11/26/2024 Refill Department of Family [facility], [facility], in [address] [place] [address] Saige Flynn APRN, C.N.P. Med Refill 11/20/2024 Refill Department of Family Medicine, [facility], in [address] [place] [address] Ada Calixto APRN, C.N.P. Med Refill 11/20/2024 Refill Department of Family [facility], [facility], in [address] [place] [address] Katelynn Carpenter M.D. Med Refill 11/16/2024 Clinical Communication Department of Family Medicine, [facility], in [address] [place] [phone] Katelynn Carpenter M.D. 11/14/2024 Clinical Communication Department of Family [facility], [facility], in [address] [place] [address] Katelynn Carpenter M.D. 11/08/2024 Refill Department of Family Medicine, [facility], in [address] [phone] Katelynn Carpenter M.D. Med Refill 11/02/2024 Refill Department of Family Medicine, [facility], in [address] [phone] Ketty Shepherd M.D. Med Refill (11/06/24 question on macrobid refill via portal. ) 10/25/[address] [facility] in [place], [place] [address] [phone] Katia Elliott MPAS, P.A. Med Refill 10/25/[address] [facility] [address] [place] [phone] Ami Delarosa, EYAL, C.N.P., M.S.N. Med Refill 10/25/2024 Refill Department of Family Medicine, [facility], in [address] [phone] Katelynn Carpenter M.D. Med Refill 2024 3:00 PM CDT Office Visit Department of Orthopedic Surgery in [address] [phone] Akash Mendez M.D. Epicondylitis Lateral Right (Primary Dx) from Last 3 Months Immunizations Immunization Administration Dates Next Due Influenza, Unspecified 02/22/2017,2015,02/01/2015,2013,03/17/2013,02/09/2011,03/17/2010,1 05/22/2006,03/31/2004,02/14/2003, 996 PCV13 01/20/2022 PPSV23 07/14/2022 RZV (SHINGRIX) 07/28/2023,02/17/2023 SARS-COV-2 (COVID-19) - MODE RNA (12 YEARS AND OLDER) Fall Seasonal 03/15/2024 Tdap 07/14/2022,08/08/2012,07/30/2005 influenza trivalent vaccine (6 months and older)(PF) 03/15/2024 influenza vaccine QV(FLUBLOK ) (18 years or older) (PF) 01/19/2023 Family History Medical History Relation Name Comments ADD Daughter 1 Priscila Coronelromainek ADD Migraines Daughter 1 Priscila Coronelromainek ADD Daughter 2 Natali Rodriguez ADD and I al so have it too but am currently unmedicated and I d like to get my Ritalin back ADD / ADHD Daughter 2 Natali Rodriguez ADD Daughter 3 Paradise Rodriguez ADD ADD Daughter 4 Priscila Coronelromainek ADD Migraines Daughter 4 Priscila Coroenlromainek ADD Daughter 5 Natali Michael ADD and I al so have it too but am currently unmedicated and I d like to get my Ritalin back ADD / ADHD Daughter 5 Natali Rodriguez Anesthesia problems Father Don Savannah Dont kno w what to Coronary artery disease Father Don Savannah Hear t attack x2. S/P stents. Migraines Father Don Savannah His are debilitating Osteoporosis Father Sebastien Mullenuve Breast cancer Mother Federica Nuñez Double mastect ilana (1982) immediate revision Dementia Mother Federica Nuñez Slow progressio n Depression Mother Federica Nuñez Shes lonely Osteoporosis Mother Federica Nuñez Ovarian cancer Mother Federica Nuñez 1980 Skin cancer Mother Federica Nuñez On nose Colon cancer Mother's Sister 1 Mae Bouvine Pancreatic cancer Mother's Sister 1 Mae Bouvine S he was around 83 Colon cancer Mother's Sister 2 Mae Bouvine Pancreatic cancer Mother's Sister 2 Mae Bouvine S he was around 83 Breast cancer Sister 1 Parkinsons disease Sister 1 Breast cancer Sister 2 Lisetrocky Dobbins Depression Sister 2 Liset Dobbins Shes got a hard life Obesity Sister 2 Liset Dobbins None Rheum arthritis Sister 2 Lisetrocky Dobbins Thyroid cancer Sister 2 Liset Dobbins ADD Son 1 Arnaldo Rodriguez ADHD ADD / ADHD Son 1 Arnaldo Rodriguez ADD Son 2 Diego Rodriguez ADHD ADD / ADHD Son 2 Diego Michael ADD Son 3 Diego Michael ADHD ADD / ADHD Son 3 Diego Michael ADD Son 4 Arnaldo Rodriguez ADHD ADD / ADHD Son 4 Arnaldo Rodriguez Relation Name Status Comments Daughter 1 Priscila Merchant Daughter 2 Natali Michael Daughter 3 Paradise Rodriguez Daughter 4 Priscila Merchant Alive Daughter 5 Natali Rodriguez Alive Father Sebastien Nuñez Mother Federica Nuñez Mother's Sister 1 Mae Condon Mother's Sister 2 Mae Layneine Alive Sister 1 Sister 2 Liset Dobbins Son 1 Arnaldo Michael Son 2 Diego Michael Son 3 Diego Michael Alive Son 4 Arnaldo Rodriguez Alive Social History Tobacco Use Types Packs/Day Years [...] alcohol) [facility] of [facility] with [facility] [employer] Karma Answer Date Recorded In the past 12 months has [facility] [employer], gas, oil, or water [employer] threatened to shut off services in your [...] Sex Assigned at Female 06/20/2021 12:21 PM [employer] Legal Sex Female 2:12 PM [employer] Gender Identity Female 04/22/2017 9:22 AM [employer]T SAWYER Sexual Orientation Straight 04/22/2017 9: 22 AM [employer]T [employer]ER Occupation Industry Job Start Date Job End Date Homemaker Not on file Not on file Not on file Last Filed Vital Signs Vital Sign Reading Time Taken Comments Blood Pressure 104/68 01/10/2025 3:12 PM CDT Pulse 80 01/10/2025 3:12 PM CDT Temperature 36.1 C (97 F) 02/16/2024 1:32 PM CDT Respiratory Rate 16 07/17/2020 1:46 PM BUTT SAWYER Oxygen Saturation 99% 11/08/2023 3:46 PM CDT Inhaled Oxygen Concentration - - Weight 93.5 kg (206 lb 2.1 oz) 01/10/2025 3:12 P M CDT Height 155.5 cm (5' 1.22) 01/10/2025 3:12 PM CD T Body Mass Index 38.67 01/10/2025 3:12 PM CDT Plan of Treatment Upcoming Encounters Date Type Department Care Team (Late st Contact Info) Description 01/26/2025 1:45 PM CDT Office Visit Department of Orthopedic Surgery in [place], [place] [address] [place] [phone] kAash Mendez M.D. [address] [place] [phone] 01/31/2025 4:00 PM CDT Appointment Department of Radiology in [address] [place] [address] Katelynn Carpenter M.D. [address] [place] [phone] 03/06/2025 1:40 PM CDT Comprehensive Visit Department of Family Medicine, [facility], in [place], [place] [address] [place] [phone] Katelynn Carpenter M.D. [address] [place] [phone] Health Maintenance Due Date Last Done Comments CT Colonography 1967 Colonoscopy 1967 FIT 1967 Hepatitis C Screening 1967 Lung Cancer Screening 1967 Hepatitis B Vaccines (1 of 3 - 19+ 3-dose series) 10/23/1986 Mammogram 09/15/2024 09/16/2023, 08/0 01/2022, 09/17/2017, Additional history exists Cologuard 12/04/2024 12/04/2021 Colorectal Cancer Screening 12/04/2024 Influenza Vaccine (#1) 2025 , 01/19/2023, 02/22/2017, Additional history exists Depression Monitoring (PHQ-9) 05/12/2025 01/10/2025 Fasting Glucose for Diabetes Screening 09/15/2026 09/16/2023, 07/28/2023, 03/05/2022, Additional history exists Cervical/Vaginal Cancer Screening 01/20/2027 01/20/2022, 01/20/2022, 06/22/2014, Additional history exists Pneumococcal vaccine (50+ years) (3 of 3 - PCV20 or PCV21) 07/14/2027 07/14/2022, 01/20/2022 Lipid (Cholesterol) Screening 07/27/2028 07/28/2023, 03/05/2022, 10/12/2018, Additional history exists DTaP,Tdap,and Td Vaccines (4 - Td or Tdap) 07/14/2032 07/14/2022, 08/08/2012, 07/30/2005 Zoster Vaccines Completed 07/28/2023, 02/17/2023 COVID-19 Vaccine Completed 03/15/2024, 08/2022, 01/03/2021, Additional history exists Depression Monitoring (PHQ-9 for quality tracking) Completed 01/10/2025 IPV Vaccines Aged Out No longer eligi ble based on patient's age to complete this topic Procedures Procedure Name Priority Date/Time Associated Diagnosis Comments OH INJ SNGL TENDN ORIGIN/INS Routine 2024 3:00 PM CDT Epicondylitis Lateral Right BI BREAST SCREENING BILATERAL WITH TOMOSYNTHESIS RAD - Routine (most inpatients and all outpatients) 09/16/2023 3:04 PM CDT Screening Mammogram Breast Cancer GLUCOSE, FASTING, S/P Routine 09/16/2023 2:53 PM CDT Screening Examination Diabetes Mellitus LIPID PANEL, S Routine 03/05/2022 10:28 AM CDT Hyperlipidemia Mixed HPV WITH GENOTYPING, PCR, THINPREP Routine 01/20/2022 3:07 PM CDT COLOGUARD Routine 12/04/2021 1:10 PM CDT Screening Cancer Colon from Last 3 Months or Most Recently Relevant to Health Maintenance Results * OH INJ SNGL TENDN ORIGIN/INS (2024 3:00 PM CDT) Narrative MMODAL - 2024 3:00 PM CDT Akash Mendez M.D. 2024 2:59 PM Elbow site - R lateral epicondyle : injection only Performed by: Akash Mendez M.D. Authorized by: Akash Mendez M.D. PROCEDURE DETAILS Procedure Location elbow Elbow site: R lateral epicondyle Patient position: seated Procedural approach: lateral Procedure performed: injection only Needle gauge: 25 G, length: 1 1/2 in Procedural Medication The following medications were administered at the target site(s) Local anesthetic: 2 mL lidocaine 10 mg/mL (1 %) Corticosteroid: 3 mg betamethasone acetate & sodium phosphate 6 mg/mL PRE-PROCEDURE DETAILS Site preparation: alcohol POST-PROCEDURE DETAILS Complications: no apparent complications Post-procedure instructions: avoid strenuous activity for 2 days Discharge instructions: ice area as needed for comfort and per nursing education record Akash Mendez M.D. PROCEDURE/MINOR SURGICAL ORD ERABLES Final Result MMODAL NA * (ABNORMAL) BI Breast Screening Bilateral with Tomosynthesis (09/16/2023 3:04 PM CDT) Anatomical Region Laterality Modality Breast, Breast Imaging RST L OS, Breast Imaging ARZ LOS, Breast Imaging FLA LOS Bilateral Mammography Impressions 09/16/2023 3:15 PM CDT Incomplete. Need additional imaging evaluation. RECOMMENDATION: Additional Imaging Diagnostic imaging and breast ultrasound evaluation. ASSESSMENT: BI-RADS: 0 - Incomplete: Needs Additional Imaging Evaluation. Narrative 09/16/2023 3:15 PM CDT EXAM: BI BREAST SCREENING BILATERAL WITH TOMOSYNTHESIS Current study was evaluated with a Computer Aided Detection (CAD) system. INDICATION: Screening mammogram. COMPARISON: Prior exam(s) were available and reviewed for comparison. DENSITY: b. There are scattered areas of fibroglandular density. FINDINGS: Focal asymmetry in the retroareolar region of the left breast. No suspicious finding in the right breast. Procedure Note Brody Denis M.D. - 09/16/2023 EXAM: BI BREAST SCREENING BILATERAL WITH TOMOSYNTHESIS Current study was evaluated with a Computer Aided Detection (CAD) system. INDICATION: Screening mammogram. COMPARISON: Prior exam(s) were available and reviewed for comparison. DENSITY: b. There are scattered areas of fibroglandular density. FINDINGS: Focal asymmetry in the retroareolar region of the left breast.No suspicious finding in the right breast. IMPRESSION: Incomplete. Need additional imaging evaluation. RECOMMENDATION: Additional Imaging Diagnostic imaging and breast ultrasound evaluation. ASSESSMENT: BI-RADS: 0 - Incomplete: Needs Additional ImagingEvaluation. us Jada Rashid M.D. IMG BI PROCEDURES Final Re sult * Glucose, Fasting (09/16/2023 2:53 PM CDT) Glucose, P 100 70 - 100 mg/dL 09/16/2023 3:19 PM CDT OWAT Last Intake 15 hr 09/16/2023 3:01 PM CDT OWAT Blood (Blood, Venous) 09/16/2023 2:53 PM CDT 09/16/2023 3:00 PM CDT us Ada Calixto APRN, C.N.P. LAB BLOOD NON ADD-O N Final Result [facility] [address], [place] [address], [facility] in [place] [address] [place] [address] * (ABNORMAL) Lipid Panel (03/05/2022 10:28 AM CDT) Triglycerides 84 mg/dL 03/05/2022 10:57 AM CDT OWAT Comment: ----REFERENCE VALUE---- Normal: <150 mg/dL Borderline High: 150-199 mg/dL High: 200-499 mg/dL Very High: > or =500 mg/dL Cholesterol, Total 167 mg/dL 2021 10:57 AM CDT OWAT Comment: ----REFERENCE VALUE---- Desirable: < 200 mg/dL Borderline High: 200 - 239 mg/dL High: > or = 240 mg/dL Cholesterol, LDL, Calculated 102 mg/dL 03/05/2022 10:57 AM CDT OWAT Comment: ----REFERENCE VALUE---- Desirable: <100 mg/dL Above Desirable: 100-129 mg/dL Borderline High: 130-159 mg/dL High: 160-189 mg/dL Very High: >=190 mg/dL ----ADDITIONAL INFORMATION---- LDL cholesterol calculated using the Cruz/NIH equation. Cholesterol, HDL 49(L) >=50 mg/dL 03/05/20 10:57 AM CDT OWAT Cholesterol, Non-HDL, Calculated 118 mg/dL 03/05/2022 10:57 AM CDT OWAT Comment: ----REFERENCE VALUE---- Desirable: <130 mg/dL Above Desirable: 130-159 mg/dL Borderline High: 160-189 mg/dL High: 190-219 mg/dL Very High: > or =220 mg/dL Fasting (8 HR or more) y 03/05/2022 10:33 AM CDT OWAT Blood (Blood, Venous) 03/05/2022 10:28 AM CDT 03/05/2022 10:33 AM CDT us Chelsea Ibrahim M.D. LAB BLOOD ADD-ON Final R esult [facility] [address] [place], [place] [id number], [facility] OWAT [facility] [place] [address] [place] [address] * HPV with Genotyping, PCR, ThinPrep (01/20/2022 3:07 PM CDT) HPV with Genotyping, ThinPrep, PCR Negative Negative 01/21/2022 2:40 PM CDT MKTO Comment: Negative for high risk HPV by nucleic acid amplification. The following high risk HPV types were not detected: 16, 18, 31, 33, 35, 39, 45, 51, 52, 56, 58, 59, 66, and 68 This result does not rule out HPV in the patient, as the sensitivity of the test depends on the timing of the specimen collection and the quality of the specimen. Result should be correlated with patient's history, clinical presentation, and DIRECTOR BIOMEDICAL ENGINEERING cytology report. Varies 01/20/2022 3:07 PM CDT 01/21/2022 7:23 AM CDT us Chelsea Ibrahim M.D. LAB MICROBIOLOGY - GENER AL ORDERABLES Final Result [facility] [address] [place] [address], [facility] MKTO [facility] in [place] [address] [place] [address] * Cologuard-Sent Out Lab (12/04/2021 1:10 PM CDT) Result Negative Negative 12/12/2021 8:49 AM CDT EXLI Comment: NEGATIVE TEST RESULT. A negative Cologuard result indicates a low likelihood that a colorectal cancer (CRC) or advanced adenoma (adenomatous polyps with more advanced pre-malignant features) is present. The chance that a person with a negative Cologuard test has a colorectal cancer is less than 1 in 1500 (negative predictive value >99.9%) or has an advanced adenoma is less than 5.3% (negative predictive value 94.7%). These data are based on a prospective cross-sectional study of 10,000 individuals at average risk for colorectal cancer who were screened with both Cologuard and colonoscopy. (Corina Eng et al, N Engl J Med 2014;370(14):5433-7266) The normal value (reference range) for this assay is negative. COLOGUARD RE-SCREENING RECOMMENDATION: Periodic colorectal cancer screening is an important part of preventive healthcare for asymptomatic individuals at average risk for colorectal cancer. Following a negative Cologuard result, the [place] Cancer Society and U.S. Multi-Society Task Force screening guidelines recommend a Cologuard re-screening interval of 3 years. References: [place] [employer] Guideline for Colorectal Cancer Screening: https://www.cancer.org/cancer/tfdau-yvlbuj-aqzbqc/detection- diagnosis-staging/acs-recommendations.html.; Delbert ISAAC, Lilia JACK, [place], Colorectal Cancer Screening: Recommendations for Physicians and Patients from the U.S. Multi-Society Task Force on Colorectal Cancer Screening , Am J Gastroenterology 2017; 112:6516-1004. TEST DESCRIPTION: Composite algorithmic analysis of stool DNA-biomarkers with hemoglobin immunoassay. Quantitative values of individual biomarkers are not reportable and are not associated with individual biomarker result reference ranges. Cologuard is intended for colorectal cancer screening of adults of either sex, 45 years or older, who are at average-risk for colorectal cancer (CRC). Cologuard has been approved for use by the U.S. FDA. The performance of Cologuard was established in a cross sectional study of average-risk adults aged 50-84. Cologuard performance in patients ages 45 to 49 years was estimated by sub-group analysis of near-age groups. Colonoscopies performed for a positive result may find as the most clinically significant lesion: colorectal cancer [4.0%], advanced adenoma (including sessile serrated polyps greater than or equal to 1cm diameter) [20%] or non- advanced adenoma [31%]; or no colorectal neoplasia [45%]. These estimates are derived from a prospective cross-sectional screening study of 10,000 individuals at average risk for colorectal cancer who were screened with both Cologuard and colonoscopy. (Corina Bobo al, N Engl J Med 2014;370(14):4345-0532.) Cologuard may produce a false negative or false positive result (no colorectal cancer or precancerous polyp present at colonoscopy follow up). A negative Cologuard test result does not guarantee the absence of CRC or advanced adenoma (pre-cancer). The current Cologuard screening interval is every 3 years. ([place] Cancer Society and U.S. Multi-Society Task Force). Cologuard performance data in a 10,000 patient pivotal study using colonoscopy as the reference method can be accessed at the following location: www.SocialBrowse.com/results. Additional description of the Cologuard test process, warnings and precautions can be found at www.nTAG InteractiveogChange Collectiverd.com. Stool (Stool) 12/04/2021 1:1 0 PM CDT 12/06/2021 7:47 PM CDT Chelsea Ibrahim M.D. LAB BODY FLUIDS AND STOO LS ORDERABLES Final Result [employer] [address] [place] [address] EXLI [facility] [address] [facility], [address] [place] [address] from Last 3 Months or Most Recently Relevant to Health Maintenance Insurance [facility] C[facility] Care Teams Certified Surgical Technician Relationship Specialty Start Date End Date Katelynn Carpenter M.D. [address] [place] [address] PCP - General 10/29/23
--- OUTSIDE RECORDS SUMMARY | 2025-01-18 11:19 | XMS_ITS | Encounter Summary ---
Author Organization [facility] Address [address] [place] [address] Care Team Providers Care Hourly Sales Staff Name Role Phone Katelynn Carpenter M.D. Primary Care Provider Reason for Visit * Reason Comments Med Refill Encounter Details Date Type Department Care Team (Late st Contact Info) Description 12/26/2024 Refill Department of Family Medicine, [facility], in [place], [place] [address] [phone] Saige Flynn, EYAL, C.N.P. [address] [place] [phone] Med Refill Social History Tobacco Use [...] Glass of wine with dinner/ w hubby [facility] Utilities Answer Date Recorded In the past 12 months has [facility] electric, gas, oil, or water company threatened [...] Sex Assigned at Female 06/20/2021 12:21 PM WIRE FENCE BUILDER Legal Sex Female 2:12 PM WIRE FENCE BUILDER Gender Identity Female 04/22/2017 9:22 AM WIRE FENCE BUILDER Sexual Orientation Straight 04/22/2017 9: 22 AM WIRE FENCE BUILDER Occupation Industry Job Start Date Job End Date Homemaker Not on file Not on file Not on file documented as of this encounter Plan of Treatment Upcoming Encounters Date Type Department Care Team (Late st Contact Info) Description 01/26/2025 1:45 PM CDT Office Visit Department of Orthopedic Surgery in [place], [place] [address] [place] [address] Akash Mendez M.D. [address] [phone] 01/31/2025 4:00 PM CDT Appointment Department of Radiology in [place], [place] [address] [place] [address] Katelynn Carpenter M.D. [address] [phone] 03/06/2025 1:40 PM CDT Comprehensive Visit Department of Family Medicine, [facility], in [place], [place] [address] [phone] Katelynn Carpenter M.D. [address] [phone] documented as of this encounter Visit Diagnoses Not on filedocumented in this encounter Additional Health Concerns Assessment Noted Time PHQ-9 Depression Total Score: 15 024 10:51 AM WIRE FENCE BUILDER documented as of this encounter Care Teams Hourly Sales Staff Relationship Specialty Start Date End Date Katelynn Carpenter M.D. [address] [phone] PCP - General 10/29/23 documented as of this encounter
--- OUTSIDE RECORDS SUMMARY | 2025-01-18 11:19 | XMS_ITS | Encounter Summary ---
Author Organization [facility] Address [address] [place] [address] Care Team Providers Care Convolute Tube Winder Name Role Phone Katelynn Carpenter M.D. Primary Care Provider Encounter Details Date Type Department Care Team (Late st Contact Info) Description 01/11/2025 Orders Only Department of Family Medicine, [facility], in [place], [place] [address] [place] [phone] Katelynn Carpenter M.D. [address] [place] [phone] Screening Cancer Colon Social History Tobacco Use [...] Glass of wine with dinner/ w hubby [facility] Utilities Answer Date Recorded In the past 12 months has [facility] [employer], gas, oil, or water [employer] threatened to shut off services in your [...] Sex Assigned at Female 06/20/2021 12:21 PM WELDER HELPER Legal Sex Female 2:12 PM WELDER HELPER Gender Identity Female 04/22/2017 9:22 AM WELDER HELPER Sexual Orientation Straight 04/22/2017 9: 22 AM WELDER HELPER Occupation Industry Job Start Date Job End Date Homemaker Not on file Not on file Not on file documented as of this encounter Plan of Treatment Upcoming Encounters Date Type Department Care Team (Late st Contact Info) Description 01/26/2025 1:45 PM CDT Office Visit Department of Orthopedic Surgery in [place], [place] [address], [place] [phone] Akash Mendez M.D. [address] [phone] 01/31/2025 4:00 PM CDT Appointment Department of Radiology in [place] [address] [facility] [place] [address] Katelynn Carpenter M.D. [address] [phone] 03/06/2025 1:40 PM CDT Comprehensive Visit Department of Family Medicine, [facility], in [place], [place] [address] [phone] Katelynn Carpenter M.D. [address] [phone] documented as of this encounter Visit Diagnoses Diagnosis Screening Cancer Colon documented in this encounter Additional Health Concerns Assessment Noted Time PHQ-9 Depression Total Score: 15 025 8:08 AM CDT documented as of this encounter Care Teams Convolute Tube Winder Relationship Specialty Start Date End Date Katelynn Carpenter M.D. [address] [phone] PCP - General 10/29/23 documented as of this encounter
--- OUTSIDE RECORDS SUMMARY | 2025-01-18 11:19 | XMS_ITS | Encounter Summary ---
Author Organization [facility] Address [address] [place] [address] Care Team Providers Care Hotel Recreational Facilities Manager Name Role Phone Katelynn Carpenter M.D. Primary Care Provider Reason for Referral * Outpatient (Routine) - Authorized Specialty Diagnoses / Procedures Referred By Silvana t Referred To Contact Diagnoses Pain Low Back Chronic Procedures DX Lumbar Spine 2-3 Views Chelsea Ibrahim M.D. [address], [place] [address] Phone: tel: fax: [facility] Region Referral ID Status Reason Start Date Expiration Date V isits Requested Visits Authorized [id number] Authorized 12/15/2024 03/17/2026 1 1 Reason for Visit * Reason Onset Date Comments Order Request 12/14/2024 Encounter Details Date Type Department Care Team (Late st Contact Info) Description 12/14/2024 Clinical Communication Department of Family Medicine, [facility], in [place], [place] [address] [place] [address] James Colby M.D. [address], [place] [phone] Order Request Social History Tobacco Use Types Packs/Day Years [...] alcohol) Glass of wine with dinner/ [facility] Internet Broadcastingities Answer Date Recorded In the past 12 months has [employer], oil, or water [email or web address] threatened to shut off services in your [...] Sex Assigned at Female 06/20/2021 12:21 PM TECHNOLOGY MANAGER Legal Sex Female 2:12 PM TECHNOLOGY MANAGER Gender Identity Female 04/22/2017 9:22 AM TECHNOLOGY MANAGER Sexual Orientation Straight 04/22/2017 9: 22 AM TECHNOLOGY MANAGER Occupation Industry Job Start Date Job End Date Homemaker Not on file Not on file Not on file documented as of this encounter Plan of Treatment Upcoming Encounters Date Type Department Care Team (Late st Contact Info) Description 01/26/2025 1:45 PM CDT Office Visit Department of Orthopedic Surgery in [place], [place] [address] [phone] Akash Mendez M.D. [address] [phone] 01/31/2025 4:00 PM CDT Appointment Department of Radiology in [address] [phone] Katelynn Carpenter M.D. [address] [phone] 03/06/2025 1:40 PM CDT Comprehensive Visit Department of Family Medicine, [facility], in [place], [place] [address] [phone] Katelynn Carpenter M.D. [address] [phone] Scheduled Orders Name Type Priority Associated Diagnoses Orde r Schedule DX Lumbar Spine 2-3 Views Imaging RAD - Routine (most inpatients and all outpatients) Pain Low Back Chronic Expected: 12/15/2024, Expires: 03/17/2026 documented as of this encounter Visit Diagnoses Diagnosis Pain Low Back Chronic- Primary documented in this encounter Additional Health Concerns Assessment Noted Time PHQ-9 Depression Total Score: 15 024 10:51 AM TECHNOLOGY MANAGER documented as of this encounter Care Teams Hotel Recreational Facilities Manager Relationship Specialty Start Date End Date Katelynn Carpenter M.D. [address] [place] [phone] PCP - General 10/29/23 documented as of this encounter
--- OUTSIDE RECORDS SUMMARY | 2025-01-18 11:19 | XMS_ITS | Patient Health Record ---
Author Organization [facility] Address [address] [place] [address] [address] [place] [address] Care Team Providers Care Gear Shaper Name Role Phone William Wilkins MD Primary Care Provider UnavailBob Chavez Unavailable [phone] Allergies Allergen (clinical drug ingredient) Drug/Non Drug Allergy documented on EMR Reaction Allergy Type Onset Date Status erythromycin Erythromycin vomiting Drug Allergy A ctive Reason For Referral No Information Medications Medication SIG (Take, Route, Frequency, Duration) Notes Start Date End Date Status Low Dose Naltrexone .5 mg (Apothecary) LDN 0.5 mg Titrate by pharmacist oral 1-2 times per day titrate by pharmacist; Duration: 30 08/05/2023 Active Gabapentin 300 MG 2 capsules Orally tw ice a day Active HYDROcodone-Acetaminophen 7.5-325 MG 1 tablet as needed Orally every 8 hours Active Cyclobenzaprine HCl 10 MG as directed Or ally Once a day Active Social History Tobacco Use: Social History Observation Description Date Details (start date - stop date) Never Smoker NA - NA Tobacco Use/Smoking: Question Answer Notes Are you a nonsmoker Alcohol Screen Question Answer Notes Did you have a drink containing alcohol in the p ast year? No Points 0 Interpretation Negative Problems Problem Type SNOMED Code ICD Code Onset Dates Problem Status W/U Status Risk Notes Problem Chronic pain (28595618) Other chronic pain (G89.29) Active confirmed Problem Fibromyalgia (106083872) Fibromyalgia (M79.7) Active confirmed Plan Of Treatment No Information Insurance Providers Payer Name Payer Address Payer Phone Subscriber Number Group Number Insured Name Patient Relationship to Insured Coverage Start Date Coverage End Date [place] Blue [place] PMAP [address] [address] [place] [address] [id number] Marion Rodriguez Self - patient is the insured [address] [place] [address] [address] [address] [place], [place] [id number] Marion Rodriguez Self - patient is the insured Medical (General) History Medical History History ICD Code Acid reflux Anxiety depression fibromyalgia Vision Loss Surgical History Surgery Date(Month/Year) C-sections /94/06 Tonsilectomy 1984 Cystoscopy
--- OUTSIDE RECORDS SUMMARY | 2025-01-18 11:19 | XMS_ITS | Encounter Summary ---
Author Organization [facility] Address [address] [place] [address] Care Team Providers Care Manager Center Name Role Phone Katelynn Carpenter M.D. Primary Care Provider Reason for Visit * Reason Comments Med Refill Encounter Details Date Type Department Care Team (Late st Contact Info) Description 12/17/2024 Refill Department of Family Medicine, [facility], in [place], [place] [address] [place] [phone] Katelynn Carpenter M.D. [address] [place] [phone] Med Refill Social History Tobacco Use [...] Glass of wine with dinner/ w hubby [facility] Utilities Answer Date Recorded In the past 12 months has [employer] electric, gas, oil, or water company threatened [...] Sex Assigned at Female 06/20/2021 12:21 PM CAR INSTALLATIONS SUPERVISOR Legal Sex Female 2:12 PM CAR INSTALLATIONS SUPERVISOR Gender Identity Female 04/22/2017 9:22 AM CAR INSTALLATIONS SUPERVISOR Sexual Orientation Straight 04/22/2017 9: 22 AM CAR INSTALLATIONS SUPERVISOR Occupation Industry Job Start Date Job End Date Homemaker Not on file Not on file Not on file documented as of this encounter Miscellaneous Notes * Telephone Encounter - Kimberli Hidalgo - 12/21/2024 6:27 AM CDT Request for weight loss injection received. Patient needs to answer questions first. Patient portalmessage was sent, but we never received a response. Wegovy 1mg is pended. Historical med list shows the prescription has . Please renew or reject as appropriate. Thank you. documented in this encounter Plan of Treatment Upcoming Encounters Date Type Department Care Team (Late st Contact Info) Description 01/26/2025 1:45 PM CDT Office Visit Department of Orthopedic Surgery in [place], [place] [address] [phone] Akash Mendez M.D. [address] [phone] 01/31/2025 4:00 PM CDT Appointment Department of Radiology in [place] [address] [place] [phone] Katelynn Carpenter M.D. [address] [phone] 03/06/2025 1:40 PM CDT Comprehensive Visit Department of Family Medicine, [facility], in [place], [place] [address] [phone] Katelynn Carpenter M.D. [address] [phone] documented as of this encounter Visit Diagnoses Diagnosis Morbid Obesity Body Mass Index 40.0-44.9 Adult (HCC) documented in this encounter Additional Health Concerns Assessment Noted Time PHQ-9 Depression Total Score: 15 024 10:51 AM CAR INSTALLATIONS SUPERVISOR documented as of this encounter Care Teams Manager Center Relationship Specialty Start Date End Date Katelynn Carpenter M.D. [address] [place] [phone] PCP - General 10/29/23 documented as of this encounter
--- OUTSIDE RECORDS SUMMARY | 2025-01-18 11:19 | XMS_ITS | Clinical Summary ---
Author Organization [employer] Address [address] [place] [id number] Care Team Providers Care Electrical Continuity Inspector Name Role Phone Katelynn Carpenter MD Primary Care Provi daniel Allergies Active Allergy Reactions Criticality Noted Date Comments Erythromycin Vomiting 08/04/2006 Nabumetone GI Upset 10/31/2007 Heartburn Topiramate GI Upset High 01/28/2022 Medications cetirizine (ZYRTEC) 10 mg tabletIndications :Environmental allergies TAKE ONE TABLET BY MOUTH DAILY 14 tablet 0 011 Active ferrous sulfate, 65 mg elemental, tabletIndications :Iron deficiency anemia, unspecified iron deficiency anemia type Take 1 tablet by mouth 2 times daily with meals. 100 tablet 1 019 Active cyclobenzaprine (FLEXERIL) 10 mg tabletIndications :Degeneration of lumbar or lumbosacral intervertebral disc,Chronic midline low back pain without sciatica,Acute midline low back pain without sciatica TAKE 1 TABLET BY MOUTH THREE TIMES DAILY NEEDED FOR MUSCLE SPASM 90 Tablet 5 023 Active atorvastatin (LIPITOR) 10 mg tabletIndications :High cholesterol Take 1 Tablet (10 mg) by mouth at bedtime. 90 Tablet 3 023 Active cloNIDine HCL (CATAPRES) 0.1 mg tabletIndications :Hot flashes Take 1 Tablet (0.1 mg) by mouth two times daily. 60 Tablet 5 024 Active albuterol HFA (PRO-AIR; VENTOLIN; PROVENTIL) 90 mcg/actuation inhaler Inhale 2 Puffs by mouth every 6 hours if needed. Active diclofenac topical (VOLTAREN) 1 % gel APPLY 4 GRAMS TOPICALLY 4 TIMES A DAY. APPLY TO LOW BACK & RIGHT LEG* Active simethicone (GAS-X ORAL) Take by mouth. Ac tive fluticasone (50 mcg per actuation) nasal solution (FLONASE)Indicati ons:Seasonal allergies Inhale 2 Sprays to both nostrils once daily. 48 g 1 Active Wegovy 1.7 mg/0.75 mL subcutaneous pen Inject 1.7 mg under the skin every 7 (seven) days.* Active oxybutynin (DITROPAN) 5 mg tablet Take 1 Tablet by mouth once daily. Active mv, min #36-iron,carbonyl -FA 16 mg iron- 0.38 mg tab Take 1 Tablet by mouth once daily. 2024 Active omeprazole (PRILOSEC) 20 mg Delayed-Release capsuleIndication s:Gastric bypass status for obesity TAKE ONE CAPSULE BY MOUTH TWICE DAILY 180 Capsule 2 025 Active busPIRone 30 mg tabletIndications :Generalized anxiety disorder with panic attacks Take 1 Tablet (30 mg) by mouth two times daily. Morning and night. 180 Tablet 025 Active gabapentin (NEURONTIN) 300 mg capsule Take 3 Capsules by mouth three times daily. Active aspirin 81 mg capsule Take 4 Capsules (324 mg) by mouth once daily. Active eszopiclone (LUNESTA) 2 mg tabletIndications :Insomnia, unspecified type Take 1 Tablet (2 mg) by mouth at bedtime. 30 Tablet 025 Active methylphenidate HCl (Ritalin) 20 mg tabletIndications :Attention deficit hyperactivity disorder (ADHD), predominantly inattentive type Take 1 Tablet (20 mg) by mouth three times daily. 90 Tablet 025 Active traZODone (DESYREL) 150 mg tabletIndications :Insomnia, unspecified type Take 1 Tablet (150 mg) by mouth at bedtime. 90 Tablet 025 Active DULoxetine (CYMBALTA) 60 mg Delayed-release capsuleIndication s:Generalized anxiety disorder with panic attacks,Persisten t depressive disorder Take 1 Capsule (60 mg) by mouth two times daily. 180 Capsule 025 Active buPROPion (WELLBUTRIN XL) 150 mg Extended-Release tabletIndications :Attention deficit hyperactivity disorder (ADHD), predominantly inattentive type,Persistent depressive disorder Take 1 Tablet (150 mg) by mouth once daily. Take along with Wellbutrin (bupropion) XL 300 mg daily for a total daily dose of 450 mg daily (take in the morning). 90 Tablet 025 Active buPROPion (WELLBUTRIN XL) 300 mg Extended-Release tabletIndications :Attention deficit hyperactivity disorder (ADHD), predominantly inattentive type,Persistent depressive disorder Take 1 Tablet (300 mg) by mouth once daily. Take along with Wellbutrin (bupropion) XL 150 mg daily for a total daily dose of 450 mg daily (take in the morning). 90 Tablet 025 Active eszopiclone (LUNESTA) 2 mg tabletIndications :Insomnia, unspecified type Take 1 Tablet (2 mg) by mouth at bedtime if needed for Sleep. 30 Tablet 025 Active cyanocobalamin (VITAMIN B12) 1,000 mcg/mL injectionIndicati ons:Gastric bypass status for obesity INJECT 1 VIAL BY INTRAMUSCULAR ROUTE ONCE MONTHLY. 3 mL 2 025 Active prazosin (MINIPRESS) 1 mg capsuleIndication s:Generalized anxiety disorder with panic attacks TAKE 1 CAPSULE BY MOUTH UP TO 3 TIMES DAILY NEEDED FOR ANXIETY. 90 Capsule 025 Active busPIRone (BUSPAR) 15 mg tabletIndications :Generalized anxiety disorder with panic attacks TAKE ONE TABLET BY MOUTH TWICE DAILY 60 Tablet 025 Active methylphenidate HCl (RITALIN) 20 mg tabletIndications :Insomnia, unspecified type,Attention deficit hyperactivity disorder (ADHD), predominantly inattentive type TAKE ONE TABLET BY MOUTH THREE TIMES DAILY 90 Tablet 025 Active methylphenidate HCl (Ritalin) 20 mg tabletIndications :Insomnia, unspecified type,Attention deficit hyperactivity disorder (ADHD), predominantly inattentive type Take 1 Tablet (20 mg) by mouth three times daily. 90 Tablet 025 2024 Discontinued busPIRone (BUSPAR) 15 mg tabletIndications :Generalized anxiety disorder with panic attacks TAKE ONE TABLET BY MOUTH TWICE DAILY 60 Tablet 025 2024 Discontinued Active Problems Problem Noted Date Diagnosed Date Carpal tunnel syndrome, left 03/22/2024 Carpal tunnel syndrome on left 02/29/2024 Carpal tunnel syndrome on right 12/29/2023 Tobacco dependence syndrome 11/12/2022 Attention deficit hyperactiv ity disorder (ADHD), predominantly inattentive type 08/20/2017 Persistent depressive disorder 02/01/2015 Overview (07/29/2023): Disorder Depressive Persistent (Formerly Dysthymia) NOS Mixed hyperlipidemia 07/22/2012 Issue of repeat prescriptions 10/02/2010 Overview (10/02/2010): Vicodin and ambien chronically for low back pain and sleep problems Needs OV for med management Q 6 months Painful lumbar facet arthropathy 04/03/2010 Tobacco use disorder 10/23/2009 Insomnia, unspecified 01/29/2009 Overview (01/29/2009): Uses ambien Degeneration of lumbar or lumbosacral interverte bral disc 02/27/2008 Overview (10/02/2010): MRI 2009: Mild to moderate degenerative facet disease between L3 and S1 with mild degenerative disc disease. There is mild left foraminal narrowing at L5-S1. Small posterior disc protrusion at L5-S1 is decreased in size. No significant central canal stenosis in the lumbar spine. Assessment & Plan (01/29/2009 8:42 PM CDT): Chronic narcotic use - vicodin no more then QID #120 monthly with goal to wean. Allergic rhinitis 02/07/2004 Overview (07/29/2023): LW Onset: [id number] ; Rhinitis Allergic NOS Seasonal allergies Resolved Problems Problem Noted Date Diagnosed Date Resolved Date Displacement of lumbar inter vertebral disc without myelopathy 04/26/2008 04/03/2010 Lumbago 08/16/2006 10/23/2009 Encounters Date Type Department Care Team Description 01/11/2025 Refill [facility] [address] [place] [address] Brody Pastor DO Refill Request (Methylphenidate Hcl) 12/26/2024 Refill [facility] [address] [place] [address] Brody Pastor DO Refill Request (Buspirone, Hydroxyzine Hcl) 12/18/2024 Refill [facility] [address] [place] [address] Brody Pastor DO Refill Request (Prazosin) 12/15/2024 Patient Outreach [facility] Care Management - Care Management Navigation/[address] [address] Quan Goyal [facility]-Community Resource Navigation 12/15/2024 Refill [facility] [address] [place] [phone] Brody Pastor DO Refill Request (Hydroxyzine Hcl) 12/09/2024 Refill [facility] [address] [place] [address] William Wilkins MD Refill Request (Cyanocobalamin) 12/09/2024 Refill [facility] [address] [place] [address] Brody Pastor DO Refill Request (Eszopiclone, Hydroxyzine Hcl) 11/26/2024 Refill [facility] [address] [place] [address] Brody Pastor DO Refill Request (Buspirone) 11/22/2024 1:00 PM CDT Telemedicine [address] [address] Brody Pastor DO Telehealth; Medication Management (Follow up) 11/20/[address] [address] Brody Pastor DO Refill Request (Buspirone) 11/19/2024 Telephone [facility] [address] [place] [address] William Wilkins MD Screening (Spine Clinic) 11/15/2024 1:15 PM CDT Office Visit [facility] [address] [place] [place] [address] William Wilkins MD Medication Management; Concerns (Cat scratch on left foot) 11/15/2024 Travel 11/05/2024 Refill [facility] [address] [place] [address] Brody Pastor DO Refill Request (Buspirone, Hydroxyzine Hcl, Prazosin) 11/02/2024 Refill [facility] [address] [place] [address] Brody Pastor DO Refill Request (eszopiclone 3 mg tablet) 11/02/2024 Refill [facility] [address] [place] [address] Brody Pastor DO Refill Request (methylphenidate HCl (Ritalin) 20 mg tablet) 10/30/2024 Refill [facility] [address] [place] [address] Brody Pastor DO Refill Request (Buspirone) 10/25/2024 Refill [facility] [address] [place] [address] Brody Pastor DO Refill Request (Hydroxyzine Hcl, Eszopiclone, Trazodone, Duloxetine, Buspirone) from Last 3 Months Immunizations Immunization Administration Dates Next Due AMB Influenza, IIV3 (Age >=3 years)(Flu Clinic Only) 02/28/2009 INFLUENZA, IIV3 PF (AGE >= 6 MO) 03/15/2024 Influenza RIV4 (Age 18+ Year s) PRESERV FREE 01/19/2023 Influenza Virus, Unspecified 01/19/2023, 02/22/2017,01/27/2016,2014,03/22/2007,03/31/2004,02/14/2003,1 05/18/2001,03/03/1996 Influenza, IIV3 (Age >=3 years) 02/27/2008 Influenza, IIV4 02/22/2017,01/27/2016 Influenza, IIV4 (=>6mos) MDV 02/01/2015 Pneumococcal Poly,23-Valent (Pneumovax) 07/14/2022 Pneumococcal conj 13-Valent (Prevnar 13) 01/20/2022 Tdap 07/14/2022,08/08/2012,07/30/2005 Zoster (Shingrix-RZV, recombinant) 07/28/2023, Family History Medical History Relation Name Comments Heart Disease Father [place]-[id number] Osteoporosis Father Heart Disease Maternal Grandfather Heart Disease Maternal Grandmother Alzheimer's disease Mother age 87 Cancer-breast Mother diagnosed age in her 40's Osteoporosis Mother Cancer-breast Sister Liset age 65 Relation Name Status Comments Father Alive Maternal Grandfather Maternal Grandmother Mother Sister Liset Social History Tobacco Use Types Packs/Day Years Used Date Smoking Tobacco: Every Day Cigarettes Smokeless Tobacco: Never Tobacco Cessation:Ready to Q uit: No; Counseling Given: Yes Comments:6-8 cigarettes per day Alcohol Use Standard Drinks/Week Comments Not Currently 0 (1 standard drink = 0.6 oz pur e alcohol) PHQ-2 Answer Date Recorded PHQ-2 TOTAL SCORE 4 04/25/2024 Social Connections Answer Date Recorded Do you often feel lonely or isolated from those around you? 4 11/15/2024 Financial Resource Strain Answer Date R ecorded Difficulty of Paying Living Expenses 3 11/15/2024 Difficulty of Paying Living Expenses Not on file 11/15/2024 Food Insecurity Answer Date Recorded Do you worry your food will run out before you are able to buy more? 2 11/15/2024 Transportation Needs Answer Date Record ed Does lack of transportation keep you from medica l appointments? 1 11/15/2024 Does lack of transportation keep you from work, meetings or getting things that you need? 1 11/15/2024 Housing Stability Answer Date Recorded What is your housing situation today? 2 11/15/2024 Utilities Answer Date Recorded Do you have trouble paying f or utilities (for example, heat, electricity, water, phone)? 1 11/15/2024 Comments No Sex and Gender Information Value Date Recorded Sex Assigned at Not on file Legal Sex Female 6:30 AM FIRMWARE MANAGER Gender Identity Not on file Sexual Orientation Not on file Occupation Industry Job Start Date Job End Date homemaker Not on file Not on file Not on file Obstetrics History Para Term AB IAB SAB Ectopic Multiple Livin g Live Births 6 5 1 1 Date Outcome GA Total Labor Labor/2nd/3rd Weight Sex Type Anes PTL Joaquina A1 A5 Name Clin SAB Para Para Para Para Para Last Filed Vital Signs Vital Sign Reading Time Taken Comments Blood Pressure 105/72 11/15/2024 1:30 PM CDT Pulse 68 11/15/2024 1:30 PM CDT Temperature 36.7 C (98 F) 03/23/2024 10:20 AM FIRMWARE MANAGER Respiratory Rate 18 03/23/2024 11:0 5 AM FIRMWARE MANAGER Oxygen Saturation 97% 11/15/2024 1:30 PM CDT Inhaled Oxygen Concentration - - Weight 92.9 kg (204 lb 12.8 oz) 11/15/2024 1:30 PM CDT Height 154.9 cm (5' 1) 11/15/2024 1:30 PM CDT Body Mass Index 38.7 11/15/2024 1:30 PM CDT Plan of Treatment Upcoming Encounters Date Type Department Care Team (Late st Contact Info) Description 01/24/2025 2:00 PM CDT Telemedicine [facility] [address] [place], [place] [phone] Brody Pastor DO [address] [facility] [address] [place], [place] [phone] 02/13/2025 1:45 PM CDT Office Visit [facility] [address] [place] [address] Yvette Tuttle MD [address] [place] [address] Health Maintenance Due Date Last Done Comments HIV for age 15-65 10/23/1982 Hepatitis C screening for ag e 18-79 10/23/1985 Hepatitis B series for 19+ ( 1 of 3 - 19+ 3-dose series) 10/23/1986 Mammogram for age 45-75 09/15/2024 09/16/19 24 (Completed outside of [facility]), 03/05/2010, 02/28/2009 Influenza Vaccine (#1) 2025 4, 01/19/2023, 01/19/2023, Additional history exists Pap test for age 21-65 01/20/2025 2 (Completed outside of [facility]), 02/14/2010 Depression screening for age 12+ 04/25/2025 04/25/2024, 04/25/2024, 02/21/2024, Additional history exists BMI (ht and wt on same day) for age 18+ 11/15/2025 11/15/2024, 03/30/2024, 08/05/2023, Additional history exists Pneumococcal series for age 50+ (3 of 3 - PCV20 or PCV21) 07/14/2027 07/14/2022, 01/20/2022 Lipids for age 45-75 07/27/2028 07/28/2023, 03/18/2010, 10/11/2009, Additional history exists Colonoscopy through age 75 12/05/203112/04 (Completed outside of [facility]) Tetanus booster 07/14/2032 07/14/2022, 07/16, 07/30/2005 RSV vaccine for adults or (1 - 1-dose 75+ series) 10/23/2042 Zoster (shingles) series for age 50+ Completed 07/28/2023, 02/17/2023 COVID-19 vaccine series Completed 03/15/20 24, 02/17/2023, 01/03/2021, Additional history exists Procedures Procedure Name Priority Date/Time Associated Diagnosis Comments LIPID PANEL W REFLEX MEASURED LDL Routine 07/28/2023 3:44 PM CDT Routine general medical examination at a health care facility XR MAMMO BILAT SCREEN FFDM (IA) Routine 03/05/2010 1:41 PM CDT Other screening mammogram CLEAN UP SUPERVISOR THIN PREP PAP SCREEN IMAGED Routine 02/14/2010 2:31 PM CDT Screening for malignant neoplasm of the cervix from Last 3 Months or Most Recently Relevant to Health Maintenance Results * LIPID PANEL W REFLEX MEASURED LDL (07/28/2023 3:44 PM CDT) CHOLESTEROL,TOTAL 187 100 - 199 mg/dL 07/29/2023 2:[address] [facility] Comment: Cholesterol, Total Reference Ranges Desirable <200 mg/dL Borderline 200-239 mg/dL High >=240 mg/dL TRIGLYCERIDES 67 <150 mg/dL 07/29/2023 2:[address] [facility] HDL CHOLESTEROL 56 >40 mg/dL 2:[address] [facility] NON-HDL CHOLESTEROL 131 <145 mg/dl 07/29/2023 2:[address] [facility] CHOL/HDL RATIO 3.34 <4.50 07/29/2023 2:[address] [facility] LDL CHOLESTEROL 118 <=130 mg/dL 07/29/2023 2:[address] [facility] VLDL CHOLESTEROL 13 <=30 mg/dL 07/29/2023 2:[address] [facility] PROVIDER ORDERED STATUS RANDOM 07/29/2023 2:[address] [facility] Blood BLOOD SPECIMEN / Unknown Venipuncture / Unknown 07/28/2023 3:44 PM CDT 07/28/2023 3:45 PM CDT us William Wilkins MD CHEMISTRY Final Re sult [facility] [address] [place] [address], [place] * XR MAMMO BILAT SCREEN FFDM (03/05/2010 1:41 PM CDT) Anatomical Region Laterality Modality BREASTS, Breast Left, Breast Right Bilateral Mammography Impressions 03/06/2010 12:28 PM CDT There is no radiographic evidence for malignancy. Recommend annual mammograms. A lay language report of this examination will be provided to the patient. MAMMOGRAM ASSESSMENT: ACR 2 Benign Narrative 03/06/2010 12:28 PM CDT XR MAMMO BILAT SCREEN FFDM [G0202.0] CLINICAL HISTORY: This is an asymptomatic 44 y.o. patient. INDICATION FOR EXAM: Mammogram Screening. TECHNIQUE: CC & MLO views were obtained. This digital study was evaluated with the assistance of Computer-Aided Detection. COMPARISON FILMS: Yes 02/28/09 [facility] FINDINGS: Mammographically, the breast tissue is almost entirely fat (<25% glandular). No suspicious masses or microcalcifications. Benign appearing calcifications within both breasts. Procedure Note Keo Gutierrez, DO - 03/06/2010 XR MAMMO BILAT SCREEN FFDM [G0202.0] CLINICAL HISTORY: This is an asymptomatic 44 y.o. patient. INDICATION FOR EXAM: Mammogram Screening. TECHNIQUE: CC & MLO views were obtained. This digital study was evaluatedwith the assistance of Computer-Aided Detection. COMPARISON FILMS: Yes 02/28/09 [facility] FINDINGS: Mammographically, the breast tissue is almost entirely fat(<25% glandular). No suspicious masses or microcalcifications. Benignappearing calcifications within both breasts. IMPRESSION: There is no radiographic evidence for malignancy. Recommendannual mammograms. A lay language report of this examination will be provided to the patient. MAMMOGRAM ASSESSMENT: ACR 2 Benign Dolores Light MD MAMMO Final Result * CLEAN UP SUPERVISOR THIN PREP PAP SCREEN IMAGED (02/14/2010 2:31 PM CDT) CYTOLOGY CYTOPATHOLOGY REPORT [facility] Status: Final Status [id number] CLINICAL INFORMATION Last Date of LMP :02/03/10 Last Pap Date :2006 Last Pap Result :NIL ABN [place]/Bx Past 5 YRS :None Hormone Usage :None Menstrual Status :Regular Periods Franklin/Bx done today :No Additional Information :None given HPV Request :HPV if ASCUS SPECIMEN SOURCE :Cervical/vaginal ThinPrep Vial, screening SPECIMEN ADEQUACY :Satisfactory for evaluation Endocervical component present. INTERPRETATION/RES ULT Negative for intraepithelial lesion or malignancy (NIL) Organisms Shift in martine suggestive of bacterial vaginosis Cytology 1st Screener :had Signed by :had This specimen was screened by the FDA approved ThinPrep Imaging System and manually reviewed. NOTE: The Pap test is a screening technique, not a diagnostic procedure. It is used primarily to screen for squamous cancers and precursor lesions. Published studies have shown that it is subject to both false negative and false positive results. The pap test should not be used as the sole means to diagnose or exclude pre-malignant and malignant lesions. COLLECTED:02/14/10 ACCESSIONED: 02/17/10 SIGNED: 02/25/10 [facility] PAP [place] CODE NIL [facility] Cervical/Vaginal (Cervical/Vagina l) 02/14/2010 2:31 PM CDT 02/14/2010 2:27 PM CDT us Dolores Light MD PATHOLOGY/CYTOLOGY Final Resu lt [facility] INTERNAL ZIP [id number] [address] from Last 3 Months or Most Recently Relevant to Health Maintenance Insurance [facility] Advance Directives * Full Code (Latest Code Status on File) Date Activated Date Inactivated Comments 03/23/2024 8:25 AM 03/23/2024 1:11 PM Question Answer Comments Code Status Discussion: Unable to Assess Preferences, Provider to review later * Full Code Date Activated Date Inactivated Comments 12/30/2023 7:00 AM 12/30/2023 11:55 AM Question Answer Comments Code Status Discussion: Not Discussed Care Teams Electrical Continuity Inspector Relationship Specialty Start Date End Date Katelynn Carpenter MD [address] [place] [id number] PCP - General Family Practice 03/22/24
--- OUTSIDE RECORDS SUMMARY | 2025-01-18 11:19 | XMS_ITS | Clinical Summary ---
[facility] Organization [facility] Address [id number], [place] [address] Care Team Providers Care Cabinet Abrasive Sandblaster Name Role Phone Emma Zavala MD Primary Care Provider [phone] Source Comments You are receiving this document as you are listed as the primary care provider,follow-up provider, or the patient has been referred to you for consultation.This is in compliance with the Medicare and[facility] EHR Incentive Program,which states Providers who transition their patient to another setting of careor provider of care or refers their patient to another provider of care shouldprovide summary care record for each transition of care or referral. [email or web address] Allergies Active Allergy Reactions Criticality Noted Date Comments Erythromycin 02/26/2003 PN: LW Reaction: Vomiting Medications unknown medication Indications: PN: 9 Active cyanocobalamin 1000 MCG/ML injection Inject into the muscle every month. LW Addl Instr:patient receives Vit B12 1000mcg IM q month x 12 months with diagnosis of obesity with HX of gastric bypass surgery. see on-line phone note dated 07/01/2009 for the yearly order renewal from Dr Zavala,that is good thru 07/01/2010. [paper medication log will be sent to [facility] on 10/29/2006.] LW given by:[id number] JAI GARIBAY admin time/site:[id number] [address] CYNTHIA mfg:AMER. RAMILA MARIE lo 1 1 0 Active Hydrocodone-Loyd taminophen (VICODIN OR) Active Active Problems Problem Noted Date Diagnosed Date Obesity 02/07/2004 Overview (12/19/2015): LW Modifier: s/p gastric bypass surg in 11/17 LW Onset: [id number] Allergic rhinitis 02/07/2004 Overview (01/06/2017): LW Onset: [id number] ; Rhinitis Allergic NOS Immunizations Immunization Administration Dates Next Due Flu Vac Preserv Free (3+yrs) 03/22/2007,03/31/20 04 Influenza, Unspecified Formulation 02/14/2003, Social History Tobacco Use Types Packs/Day Years Used Date Smoking Tobacco: Every Day Cigarettes Smokeless Tobacco: Never Tobacco Cessation:Ready to Q uit: No; Counseling Given: Yes Comments Unknown Sex and Gender Information Value Date Recorded Sex Assigned at Not on file Legal Sex Female 4:41 AM CDT Gender Identity Not on file Sexual Orientation Not on file Last Filed Vital Signs Vital Sign Reading Time Taken Comments Blood Pressure 128/67 01/14/2017 4:58 PM CDT Pulse 85 01/14/2017 4:58 PM CDT Temperature 37.2 C (98.9 F) 01/14/2017 4:58 PM CDT Respiratory Rate 16 01/14/2017 4:58 PM CDT Oxygen Saturation 97% 01/14/2017 4:58 PM CDT Inhaled Oxygen Concentration - - Weight 97.1 kg (213 lb 15.7 oz) 12/07/2008 2:42 PM CDT C: 97.1kg Height - - Body Mass Index - - Plan of Treatment Health Maintenance Due Date Last Done Comments Cervical Cancer Screening Due 1967 Colon Cancer Screening Plan Due 1967 Hep C Screening (Preventive Services) 1967 Mammogram 1967 HIV Screening (Preventive Services) 1983 Adult Preventive Visit 10/23/1985 DTaP/Tdap/Td Vaccine (1 - Tdap) 10/23/1986 HepB Vaccine (1) 10/23/1986 Cholesterol 10/23/2012 Pneumococcal Vaccine 50+ Yrs (1 of 1 - PCV) 10/23/2017 Zoster/Shingles Vaccine (1 of 2) 10/23/2017 COVID-19 Vaccine (1 - season) 2025 Influenza Vaccine (#1) 2025 7, 03/31/2004, 02/14/2003, Additional history exists HepA Vaccine Aged Out No longer eligi ble based on patient's age to complete this topic Hib Vaccine Aged Out No longer eligi ble based on patient's age to complete this topic IPV (Polio) Vaccine Aged Out No longe r eligible based on patient's age to complete this topic MCV4 Vaccine Aged Out No longer eligi ble based on patient's age to complete this topic Meningococcal B Vaccine Aged Out No l onger eligible based on patient's age to complete this topic Care Teams Cabinet Abrasive Sandblaster Relationship Specialty [place] [id number] [place] [id number] PCP - General 08/18/10
--- NOTE | 2025-01-18 11:49 | CRLHL7_ITS ---
For Patients: As a result of the Century Cures Act, medical imaging exams and procedure reports are released immediately into your electronic medical record. You may view this report before your referring provider. If you have questions, please contact your health care provider. INDICATION: Fall. Right wrist pain. TECHNIQUE: Noncontrast CT of the right wrist. COMPARISON: Radiographs from 01/18/2025. FINDINGS: No acute fracture. There is ulnar minus variance. Slightly prominent scapholunate interval. No significant joint space narrowing. No erosive change or chondrocalcinosis. IMPRESSION: 1. No acute fracture. 2. Ulnar minus variance. 3. Slightly prominent scapholunate interval. Please note that all CT scans at this facility use dose modulation, iterative reconstruction, and/or weight-based dosing when appropriate to reduce radiation dose to as low as reasonably achievable. Dictated by Jose Luis Merchant MD @ 01/18/2025 12:32:59 PM (Electronically Signed)
== END 2025-01-18 13:53 | disposition home or self-care (01) ==
PROVIDERS: Emergency Provider Family Medicine; PCP Family Medicine
DX: M25.531 Pain in right wrist (principal); W18.30XA Fall on same level, unspecified, initial encounter
CPT/HCPCS: 73110; 73200; 99283; 99284